=== PATIENT | male | born 1955 | race Caucasian/White ===

== ENCOUNTER 2016-12-17 11:10 | Inpatient (IN) | payer MEDICARE ==
--- NOTE | 2016-12-17 11:19 | ERPHSYRPT ---
- History of Present Illness Time Seen by Provider: 12/17/16 11:18 Historian: patient Exam Limitations: no limitations Physician History: 61 y/o male with history of DM, HTN, CAD and a fib brought in by ambulance with complaints of right sided abdominal pain and right sided testicular pain for the past 2 weeks. Pt arrives soiled in feces after having a large bowel movement in front of EMS. Pt is a poor historian. Pt describes the pain as sharp , constant, 8/10 and pt has not taken any pain meds. Pt also admits to nausea but no vomiting, diarrhea or constipation. Pt also claims he has control of his bowels but he is full of feces. Timing/Duration: week(s) Activities at Onset: none Quality: sharpness Abdominal Pain Onset Location: RLQ, suprapubic Pain Radiation: no radiation Severity of Pain-Max: severe Severity of Pain-Current: severe Modifying Factors: Improves With: defecating Allergies/Adverse Reactions: No Known Drug Allergies Allergy (Unverified 01/03/16 10:00) Home Medications: Canagliflozin [Invokana] 100 mg PO 12/17/16 [History] Carvedilol 25 mg PO 12/17/16 [History] Diltiazem HCl [Diltiazem ER] 240 mg PO 12/17/16 [History] Doxazosin Mesylate 2 mg PO 12/17/16 [History] Esomeprazole Magnesium [Nexium] 40 mg PO 12/17/16 [History] Furosemide 20 mg PO 12/17/16 [History] Hydrochlorothiazide 10.5 mg PO 12/17/16 [History] Insulin Aspart [NovoLOG Insulin] 12/17/16 [History] Methyl-B12/l-Mefolate/B6 Phos [Metanx Tablet] 12/17/16 [History] Olmesartan Medoxomil [Benicar] 5 mg PO 12/17/16 [History] Potassium Chloride 12/17/16 [History] Rosuvastatin Calcium 10 mg PO 12/17/16 [History] Hx Tetanus, Diphtheria Vaccination/Date Given: No Hx Influenza Vaccination/Date Given: Yes Hx Pneumococcal Vaccination/Date Given: No - Review of Systems Constitutional: No Fever, No Chills Eyes: No Symptoms Ears, Nose, & Throat: No Symptoms Respiratory: No Cough, No Dyspnea Cardiac: No Chest Pain, No Edema, No Syncope Abdominal/Gastrointestinal: Abdominal Pain, Nausea, No Vomiting, No Diarrhea Genitourinary Symptoms: No Dysuria Musculoskeletal: No Back Pain, No Neck Pain Skin: No Rash Neurological: No Dizziness, No Focal Weakness, No Sensory Changes Psychological: No Symptoms Endocrine: No Symptoms All Other Systems: Reviewed and Negative - Past Medical History Pertinent Past Medical History: Yes Neurological History: No Pertinent History ENT History: No Pertinent History Cardiac History: High Cholesterol, Hypertension, Myocardial Infarction (LA) Respiratory History: Sleep Apnea Endocrine Medical History: Diabetes Type II Musculoskeletal History: No Pertinent History GI Medical History: No Pertinent History History: No Pertinent History Psycho-Social History: No Pertinent History Male Reproductive Disorders: No Pertinent History Other Medical History: psoriasis - Past Surgical History Past Surgical History: Yes Neuro Surgical History: No Pertinent History Cardiac: No Pertinent History, Cardiac Catheterization Respiratory: No Pertinent History Gastrointestinal: Cholecystectomy, Hemorrhoidectomy Genitourinary: No Pertinent History Musculoskeletal: No Pertinent History, Orthopedic Surgery Male Surgical History: No Pertinent History Other Surgical History: BACK SURGERY. EYE SURGERIES - Social History Smoking Status: Never smoker Exposure to second hand smoke: Yes Drug Use: none Patient Lives Alone: No Significant Family History: heart disease, diabetes - Nursing Vital Signs Nursing Vital Signs: Initial Vital Signs Temperature 99.5 F Temperature Source Oral Pulse Rate 80 Respiratory Rate 18 Blood Pressure [Right Arm] 110/50 Pain Intensity 8 - Physical Exam General Appearance: mild distress, alert Eye Exam: PERRL/EOMI, eyes nml inspection Ears, Nose, Throat Exam: normal ENT inspection, pharynx normal, moist mucous membranes Neck Exam: normal inspection, non-tender, supple, full range of motion Respiratory Exam: normal breath sounds, lungs clear, No respiratory distress Cardiovascular Exam: regular rate/rhythm, normal heart sounds Gastrointestinal/Abdomen Exam: soft, normal bowel sounds, tenderness, No mass Male Genitalia Exam: testicular tenderness Back Exam: normal inspection, normal range of motion, No CVA tenderness, No vertebral tenderness Extremity Exam: normal inspection, normal range of motion, pelvis stable Neurologic Exam: alert, oriented x 3, cooperative, normal mood/affect, nml cerebellar function, sensation nml, No motor deficits Skin Exam: normal color, warm, dry - Course Nursing assessment & vital signs reviewed: Yes Ordered Tests: Active Orders 24 hr Category Date Time Status IV Insertion STAT Care 12/17/16 11:26 Active cath [Cath for Specimen-Straight] STAT Care 12/17/16 11:40 Active Regular Diet Diet 12/17/16 Dinner Active ABDOMEN AND PELVIS W CONTRAST [CT] Stat Exams 12/17/16 11:25 Completed CHEST 1 VIEW (PORTABLE) Stat Exams 12/17/16 15:32 Completed TESTICLE [US] Stat Exams 12/17/16 11:25 Completed AMYLASE Stat Lab 12/17/16 11:40 Completed CBC W DIFF Stat Lab 12/17/16 11:45 Completed CMP Stat Lab 12/17/16 11:40 Completed ETHOH [Ethyl Alcohol,Urine] Stat Lab 12/17/16 12:27 Completed LIPASE Stat Lab 12/17/16 11:40 Completed UA W/RFX UR CULTURE Stat Lab 12/17/16 12:27 Completed Medication Summary Generic Name Dose Route Start Last Admin Trade Name Freq PRN Reason Stop Dose Admin Clindamycin HCl/Dextrose 50 mls @ 100 mls/hr 12/17/16 17:00 Clindamycin-D5w 600 Mg/50 Ml IV 12/17/16 17:29 STAT ONE Discontinued Medications Generic Name Dose Route Start Last Admin Trade Name Freq PRN Reason Stop Dose Admin Clotrimazole 30 gm 12/17/16 17:00 Lotrimin Cream 30 Gm TP 12/17/16 17:01 STAT ONE Sodium Chloride 1,000 mls @ 999 mls/hr 12/17/16 11:27 12/17/16 12:06 Sodium Chloride 0.9% 1000 Ml IV 12/17/16 12:27 999 mls/hr .Q1H1M STA Administration Sodium Chloride Confirm 12/17/16 12:04 Sodium Chloride 0.9% 1000 Ml Administered 12/17/16 12:05 Dose 1,000 mls @ ud .ROUTE .STK-MED ONE Morphine Sulfate 4 mg 12/17/16 11:26 12/17/16 12:06 Morphine Sulfate 4 Mg Inj IV 12/17/16 11:27 4 mg STAT ONE Administration Morphine Sulfate Confirm 12/17/16 12:04 Morphine Sulfate 4 Mg Inj Administered 12/17/16 12:05 Dose 4 mg .ROUTE .STK-MED ONE Ondansetron HCl 4 mg 12/17/16 11:27 12/17/16 12:06 Zofran 4 Mg/2 Ml Vial IV 12/17/16 11:28 4 mg STAT ONE Administration Ondansetron HCl Confirm 12/17/16 12:04 Zofran 4 Mg/2 Ml Vial Administered 12/17/16 12:05 Dose 4 mg .ROUTE .STK-MED ONE Lab/Rad Data: Laboratory Result Diagrams 12/17/16 11:45 12/17/16 11:40 Laboratory Results 12/17/16 12/17/16 12/17/16 Range/Units 12:27 12:27 11:45 WBC 10.0 (4.0-10.5) K/mm3 RBC 4.00 L (4.1-5.6) M/mm3 Hgb 9.6 L (12.5-18.0) gm/dl Hct 31.8 L (42-50) % MCV 79.5 (78-100) fl MCH 24.0 L (26-32) pg MCHC 30.2 L (32-36) g/dl RDW 17.0 H (11.5-14.0) % Plt Count 329 (150-450) K/mm3 MPV 9.2 (6-9.5) fl Gran % 79.1 H (36.0-66.0) % Lymphocytes % 10.5 L (24.0-44.0) % Monocytes % 7.7 (0.0-12.0) % Eosinophils % 2.3 (0.00-5.0) % Basophils % 0.4 (0.0-0.4) % Basophils # 0.04 (0-0.4) Sodium (136-145) mEq/L Potassium (3.5-5.1) mEq/L Chloride (98-107) mEq/L Carbon Dioxide (21-32) mEq/L Anion Gap (5-15) MEQ/L BUN (9-20) mg/dL Creatinine (0.55-1.30) mg/dl Estimated GFR ML/MIN Glucose (70-110) MG/DL Calcium (8.5-10.1) mg/dL Total Bilirubin (0.2-1.0) mg/dL AST (15-37) U/L ALT (12-78) U/L Alkaline Phosphatase (46-116) U/L Serum Total Protein (6.4-8.2) gm/dL Albumin (3.4-5.0) g/dL Amylase (25-115) U/L Lipase (73-393) U/L Ur Collection Type CCMS Urine Color YELLOW (YELLOW) Urine Appearance CLEAR (CLEAR) Urine pH 6.0 6.0 (5-6) Ur Specific Lipan 1.015 (1.005-1.025) Urine Protein NEGATIVE (Negative) Urine Glucose (UA) 500 (NEGATIVE) mg/dL Urine Ketones NEGATIVE (NEGATIVE) Urine Nitrite NEGATIVE (NEGATIVE) Urine Bilirubin NEGATIVE (NEGATIVE) Urine Urobilinogen 1 (0-1) mg/dL Urine WBC (Auto) NEGATIVE (NEGATIVE) Urine RBC (Auto) NEGATIVE (0-5) Mikael/ul Urine Ethyl Alcohol 0 (0.00-20) mg/dl Specimen Received 12-17-16 1233 12/17/16 Range/Units 11:40 WBC (4.0-10.5) K/mm3 RBC (4.1-5.6) M/mm3 Hgb (12.5-18.0) gm/dl Hct (42-50) % MCV (78-100) fl MCH (26-32) pg MCHC (32-36) g/dl RDW (11.5-14.0) % Plt Count (150-450) K/mm3 MPV (6-9.5) fl Gran % (36.0-66.0) % Lymphocytes % (24.0-44.0) % Monocytes % (0.0-12.0) % Eosinophils % (0.00-5.0) % Basophils % (0.0-0.4) % Basophils # (0-0.4) Sodium 144 (136-145) mEq/L Potassium 3.4 L (3.5-5.1) mEq/L Chloride 106 (98-107) mEq/L Carbon Dioxide 28.9 (21-32) mEq/L Anion Gap 12.2 (5-15) MEQ/L BUN 18 (9-20) mg/dL Creatinine 1.21 (0.55-1.30) mg/dl Estimated GFR > 60 ML/MIN Glucose 184 H (70-110) MG/DL Calcium 8.4 L (8.5-10.1) mg/dL Total Bilirubin 0.4 (0.2-1.0) mg/dL AST 22 (15-37) U/L ALT 23 (12-78) U/L Alkaline Phosphatase 103 (46-116) U/L Serum Total Protein 6.5 (6.4-8.2) gm/dL Albumin 2.8 L (3.4-5.0) g/dL Amylase 21 L (25-115) U/L Lipase 94 (73-393) U/L Ur Collection Type Urine Color (YELLOW) Urine Appearance (CLEAR) Urine pH (5-6) Ur Specific Lipan (1.005-1.025) Urine Protein (Negative) Urine Glucose (UA) (NEGATIVE) mg/dL Urine Ketones (NEGATIVE) Urine Nitrite (NEGATIVE) Urine Bilirubin (NEGATIVE) Urine Urobilinogen (0-1) mg/dL Urine WBC (Auto) (NEGATIVE) Urine RBC (Auto) (0-5) Mikael/ul Urine Ethyl Alcohol (0.00-20) mg/dl Specimen Received - Progress Progress: unchanged Progress Note: 12/17/16 17:[address] scan abd/pelvis and US testicles are within normal limits. The labs are unremarkable except for low Hgb of 9.[address] Ren is aware of. Social work was consulted for unstable living conditions and they say the patient will have a bed at [facility] by Tuesday. Pt has a cellulitis and/or tinea cruris of the groin and testicles. Pt will be given a dose of clindamycin and clotrimazole. Pt has been admitted to hospitalist, Dr Roman for cellulitis 12/17/16 17:08 - Departure Time of Disposition: 17:07 Departure Disposition: In-patient Admission Clinical Impression: Living accommodation issues Cellulitis Qualifiers: Site of cellulitis: other site Qualified Code(s): L03.818 - Cellulitis of other sites Condition: Stable Critical Care Time: No
[2016-12-17] MEDS ORDERED: MORPHINE SULFATE 4 MG INJ IV ONE (11:26)
[2016-12-17] MEDS ORDERED: Sodium Chloride 0.9% 1000 ML 1,000 ML IV STA (11:27)
[2016-12-17] MEDS ORDERED: Zofran 4 MG/2 ML VIAL IV ONE (11:27)
[2016-12-17 12:04] LABS: BASOPHIL % 0.4 % (0.0-0.4); Eosinophil % 2.3 % (0.00-5.0); Granulocytes % 79.1 % (36.0-66.0); Lymphocytes % 10.5 % (24.0-44.0); Mean Cell Volume 79.5 fl (78-100); Mean Platelet Volume 9.2 fl (6-9.5); Monocytes % 7.7 % (0.0-12.0); Platelet Count 329 K/mm3 (150-450)
[2016-12-17] MEDS ORDERED: Zofran 4 MG/2 ML VIAL ONE (12:04)
[2016-12-17] MEDS ORDERED: Sodium Chloride 0.9% 1000 ML 1,000 ML ONE (12:04)
[2016-12-17] MEDS ORDERED: MORPHINE SULFATE 4 MG INJ ONE (12:04)
[2016-12-17 12:31] LABS: ALBUMIN 2.8 g/dL (3.4-5.0); ALKALINE PHOSPHATASE 103 U/L (46-116); ANION GAP 12.2 MEQ/L (5-15); BILIRUBIN,TOTAL 0.4 mg/dL (0.2-1.0); BLOOD UREA NITROGEN 18 mg/dL (9-20); CHLORIDE 106 mEq/L (98-107); Carbon Dioxide 28.9 mEq/L (21-32); Glucose 184 MG/DL (70-110); LIPASE 94 U/L (73-393); Potassium 3.4 mEq/L (3.5-5.1); SGOT/AST 22 U/L (15-37); SGPT/ALT 23 U/L (12-78); SODIUM 144 mEq/L (136-145); Total Protein 6.5 gm/dL (6.4-8.2)
[2016-12-17 12:48] LABS: Collection Type CCMS
[2016-12-17 12:49] LABS: ADD URINE CULTURE? NO (NO); COMPLETE URINE MICROSCOPIC? NO
--- NOTE | 2016-12-17 13:24 | XRAY ---
Exam: Testicular ultrasound from 12/17/2016. Comparison: None. Indication: Pain. Findings: The right testicle measures 4.45 cm in length and 2.0 cm x 3.1 cm in cross section. No testicular mass is seen. Normal color blood flow is seen within the right testicle. The head of the epididymis on the right measures 1.1 cm x 0.62 cm. This appears unremarkable. The left testicle measures 3.6 cm in length and 1.9 cm x 3.7 cm in cross section in cross section. No left testicular mass is seen. Normal color blood flow is seen within the left testicle. The head of the epididymis on the left measures 1.3 cm by 1.1 cm and appears unremarkable. Impression: 1. No sonographic or Doppler evidence of testicular torsion is seen. In addition, the head of each epididymis appears unremarkable. 2. No testicular mass is seen.
--- NOTE | 2016-12-17 13:54 | XRAY ---
Exam: CT of the abdomen and pelvis with 80 cc of Isovue-370 contrast from 12/17/2016. CTDI: 34.24 Comparison: CT of the abdomen and pelvis with IV contrast from 07/24/2011. Indication: Right lower quadrant pain and in testicles. Technique: Post-IV contrast axial images were obtained through the abdomen and pelvis. Reconstructed coronal and sagittal images were created and reviewed. Findings: The visualized lung bases appear clear. The heart size is within normal limits. The liver appears normal. Surgical clips consistent with prior cholecystectomy are seen within the hepatic space. No biliary duct distention is seen. The spleen appears essentially unremarkable. Both the pancreas and adrenal glands appear unremarkable. The kidneys are remarkable for a tiny nonobstructing punctate calcification within the posterior aspect of the middle third of the left kidney on axial image #41 of series #2. No other renal calculi or hydronephrosis is seen. On delayed images, both kidneys function. No renal mass is seen. The abdominal aorta appears of normal diameter. No abnormal retroperitoneal or mesenteric lymphadenopathy is seen. There is no evidence of free intraperitoneal air. The bowel is not distended. No bowel wall thickening is seen. I do note moderate scattered stool throughout the colon suggesting some constipation. No bowel obstruction is seen. No findings of acute appendicitis are seen within the right lower quadrant. There is some minimal sigmoid colon diverticulosis without evidence of diverticulitis. The anterior abdominal wall is flaccid, but I see no ventral hernia. No pelvic mass or abnormal enlarged pelvic lymph nodes are seen. There is no free intraperitoneal fluid. The urinary bladder is incompletely distended. The seminal vesicles and prostate gland are unremarkable a couple small prostate gland calcifications. No bowel containing inguinal hernia is seen. Moderate sized benign-appearing lymph nodes are seen within each groin. I see no acute fracture or aggressive bone lesion. Advanced osteoarthritis is seen throughout the visualized lower thoracic spine and lumbar spine. Moderate degenerative disc disease is seen at both L-2L3 and L4 4L5. Impression: 1. No acute process is seen within the abdomen or pelvis. Specifically, I see no evidence of appendicitis, diverticulitis, or ventral or inguinal hernia. Minimal sigmoid colon diverticulosis is seen. 2. Status post cholecystectomy. 3. Tiny nonobstructing stone within the posterior aspect of the middle third of the left kidney. 4. Moderate scattered stool is seen throughout the colon. Consider constipation. 5. Advanced degenerative joint disease/osteoarthritis is seen throughout the visualized thoracolumbar spine.
--- NOTE | 2016-12-17 16:45 | XRAY ---
Exam: AP upright portable chest film from 1608 hrs. on 12/17/2016. Comparison: AP portable chest film from 01/03/2016. Indication: care home placement. Findings: The film was obtained in a lordotic projection. The transverse heart size appears towards the upper limits of normal on this portable technique. No pulmonary vascular congestion is seen. Inspiratory effort is less than average. I cannot exclude some minimal atelectasis or scarring at the lateral left lung base. I don't believe this represents a significant change from 01/03/2016. The remainder of the lung jack appears clear. No pneumothorax or pleural fluid is seen. Some lateral osteophyte formation is seen within the thoracic spine. Impression: 1. The heart size appears towards the upper limits of normal, but is believed to be within normal limits on this portable film which slightly magnifies cardiac size. 2. Questionable minimal atelectasis or scarring at lateral left lung base near left costophrenic angle. I believe this represents no significant change from 01/03/2016. 3. No other acute cardiopulmonary disease is seen.
[2016-12-17] MEDS ORDERED: CLINDAMYCIN-D5W 600 MG/50 ML*** 50 ML IV ONE ×2 (17:00→17:12)
[2016-12-17] MEDS: LOTRIMIN CREAM 30 GM TP ONE ×2 (17:14→20:43)
[2016-12-17] MEDS ORDERED: Morphine PCA 1 MG/ML 30 ML IV ONE (22:13)
[2016-12-17] MEDS ORDERED: Vancomycin 1GM/ Ns 250ML*** 500 ML IV ONE (22:22)
[2016-12-17] MEDS ORDERED: VANCOCIN 1 GM VIAL*** 1 GM in Sodium Chloride 0.9% 250 ML 250 ML IV SCH ×4 (22:30)
[2016-12-17] MEDS ORDERED: Sodium Chloride 0.9% 500 ML 500 ML IV ONE (22:40)
[2016-12-17] MEDS ORDERED: Lantus Insulin SQ SCH (22:40)
[2016-12-17] MEDS ORDERED: Glucotrol 5 MG PO SCH (22:40)
[2016-12-17] MEDS ORDERED: NovoLOG Insulin SQ PRN (22:43)
[2016-12-17] MEDS: Sodium Chloride 0.9% 500 ML 500 ML IV SCH (23:04)
[2016-12-17] MEDS: Morphine PCA 1 MG/ML 30 ML IV PRN (23:04)
[2016-12-18] MEDS: LASIX 20 MG PO SCH ×3 (00:01→16:50)
[2016-12-18] MEDS: COREG 12.5 MG PO SCH ×3 (00:01→23:25)
[2016-12-18] MEDS: CLINDAMYCIN-D5W 600 MG/50 ML*** 50 ML IV SCH ×3 (02:04→16:50)
[2016-12-18] MEDS: Morphine PCA 1 MG/ML 30 ML IV PRN ×2 (05:09→10:53)
[2016-12-18 06:45] LABS: BASOPHIL % 0.6 % (0.0-0.4); Eosinophil % 2.3 % (0.00-5.0); Granulocytes % 69.4 % (36.0-66.0); Lymphocytes % 18.3 % (24.0-44.0); Mean Cell Volume 79.7 fl (78-100); Mean Corpuscular Hemoglobin 24.2 pg (26-32); Mean Platelet Volume 8.7 fl (6-9.5); Monocytes % 9.4 % (0.0-12.0); Platelet Count 299 K/mm3 (150-450); Red Blood Count 3.75 M/mm3 (4.1-5.6); Red Cell Distribution Width 17.1 % (11.5-14.0)
[2016-12-18 07:08] LABS: ANION GAP 12.1 MEQ/L (5-15); BLOOD UREA NITROGEN 15 mg/dL (9-20); CHLORIDE 105 mEq/L (98-107); Glucose 145 MG/DL (70-110); Potassium 3.4 mEq/L (3.5-5.1); SODIUM 141 mEq/L (136-145)
[2016-12-18] MEDS ORDERED: Glucotrol 5 MG PO SCH (08:00)
[2016-12-18] MEDS ORDERED: ULTRAM 50 MG PO PRN (08:14)
[2016-12-18] MEDS ORDERED: MEDICATION INTERVENTION MC SCH (08:30)
[2016-12-18] MEDS ORDERED: solu-MEDROL 125 MG IV SCH (09:00)
[2016-12-18] MEDS ORDERED: GLIPIZIDE 10 MG PO SCH (10:00)
[2016-12-18] MEDS ORDERED: B6 PHOS PO SCH (10:00)
[2016-12-18] MEDS ORDERED: METHYL B12 PO SCH (10:00)
[2016-12-18] MEDS ORDERED: NON-FORMULARY ITEM (Potassium Chloride [Potassium Chloride] 10 MEQ) PO SCH (10:00)
[2016-12-18] MEDS ORDERED: MEFOLATE PO SCH (10:00)
[2016-12-18] MEDS ORDERED: Protonix 40MG Tablet PO SCH (10:00)
[2016-12-18] MEDS ORDERED: HYDROCHLOROTHIAZIDE PO SCH (10:00)
[2016-12-18] MEDS: Benicar 20 MG PO SCH (10:39)
[2016-12-18] MEDS: Lantus Insulin SQ SCH ×2 (10:42→23:28)
[2016-12-18] MEDS: Glucotrol Xl 10 MG PO SCH ×2 (10:43→16:50)
[2016-12-18] MEDS: Cardizem CD 240 MG PO SCH (10:44)
[2016-12-18] MEDS: CARDURA 2 MG PO SCH (10:44)
[2016-12-18] MEDS: ZOCOR 20MG PO SCH (10:45)
[2016-12-18] MEDS: Klor Con 10 MEQ PO SCH (10:45)
[2016-12-18] MEDS: hydroDIURIL 25 MG PO SCH (10:45)
[2016-12-18] MEDS: VANCOCIN 1 GM VIAL*** 1.75 GM in Sodium Chloride 0.9% 500 ML 500 ML IV SCH ×2 (11:42→23:28)
--- NOTE | 2016-12-18 16:33 | HP ---
CHIEF COMPLAINT: Lower abdominal pain, groin pain. HISTORY OF PRESENT ILLNESS: The patient is a 61 year-old white male patient who is apparently home bound, gets around in a wheelchair. He has been seen by Dr. Ren who is his primary care physician and Dr. Umana for his diabetes. The patient had recently been in [facility] for inability to ambulate. The patient reports he got good care there; however, went home to his brother's home. The patient was found there to be unkempt, actually soiled in feces when he was brought to the emergency room for evaluation and management. PAST MEDICAL HISTORY: Significant for his diabetes mellitus. He has peripheral neuropathy. He has hyperlipidemia, gastroesophageal reflux disease. He previously had a myocardial infarction, hypertension, back surgery, eye surgery, cholecystectomy, hemorrhoidectomy. HOME MEDICATIONS: Currently Invokana, carvedilol, diltiazem, doxazosin, Nexium, furosemide, hydrochlorothiazide, Novolog insulin, Metanx tablets, Benicar 5 mg, potassium and rosuvastatin 10 mg. ALLERGIES: No known drug allergies PHYSICAL EXAMINATION: GENERAL: Reveals an obese white male patient who is pleasant in conversation, and his pain seems to be under control, presently on a morphine DIAL POLISHER. VITAL SIGNS: Temperature 99.5 oral, with pulse 80, respiratory rate 18, blood pressure 110/50. HEENT: Normocephalic and atraumatic, pupils are equal, round, reactive to light, extraocular muscles intact. Oropharynx is dry. NECK: Supple without lymphadenopathy, thyromegaly or JVD. CHEST: Clear to auscultation, good air movement bilaterally. HEART: Irregular. No significant murmurs, rubs or gallops are heard. ABDOMEN: Soft, nontender, nondistended without hepatosplenomegaly or masses. : Reveals a Almendarez catheter in place. His scrotum is edematous and enlarged. After moving around this gentleman's parts we were able to see some excoriation in the left side of the groin area extending up into the crease. The patient has pus in that area as well and is malodorous. EXTREMITIES: Reveals mild edema, no cyanosis or clubbing. NEUROLOGIC: The patient is alert and oriented x3. No focal deficits. LABS: Reveal urinalysis to be essentially normal other than 500 glucose. They did an ETOH on him which was essentially negative. His CMP showed glucose nonfasting of 184. BUN 18, creatinine 1.21. Potassium slightly low at 3.4. Liver enzymes are not elevated. Amylase and lipase are normal. He has a hemoglobin of 9.6, platelet count 329,000, a white count of 10,900. He had an x-ray , which heart was found to be in the upper limits of normal in size. There is minimal atelectasis or scarring at the left lung base. No other acute abnormalities are seen. He has a sonogram of the testicles revealing no evidence of testicular torsion, no testicular mass was seen. CT scan of the abdomen and pelvis revealed no acute process in the abdomen or pelvis, specifically no appendicitis or diverticulitis or ventral inguinal hernias. There was noted to be degenerative joint disease seen throughout the thoracolumbar spine. 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 The patient has been admitted for IV Vancomycin and IV Cleocin to cover anaerobes. He will be placed on his usual home medications with sliding scale coverage for his sugars. He will be on a morphine DIAL POLISHER pump for his pain control at the present time.
[2016-12-18] MEDS ORDERED: Levofloxacin 500MG/100ML D5W 100 ML IV SCH (17:00)
[2016-12-19] MEDS: Morphine PCA 1 MG/ML 30 ML IV PRN ×2 (01:30→10:02)
[2016-12-19] MEDS: CLINDAMYCIN-D5W 600 MG/50 ML*** 50 ML IV SCH ×3 (04:53→16:52)
[2016-12-19 06:16] LABS: BASOPHIL % 0.5 % (0.0-0.4); Eosinophil % 2.2 % (0.00-5.0); Granulocytes % 70.8 % (36.0-66.0); Lymphocytes % 16.5 % (24.0-44.0); Mean Cell Volume 79.6 fl (78-100); Mean Platelet Volume 9.3 fl (6-9.5); Platelet Count 323 K/mm3 (150-450); Red Blood Count 3.98 M/mm3 (4.1-5.6); Red Cell Distribution Width 16.9 % (11.5-14.0); White Blood Count 7.4 K/mm3 (4.0-10.5)
[2016-12-19 06:19] LABS: Mean Corpuscular Hemoglobin 23.8 pg (26-32)
[2016-12-19 06:54] LABS: ANION GAP 11.8 MEQ/L (5-15); BLOOD UREA NITROGEN 12 mg/dL (9-20); CHLORIDE 105 mEq/L (98-107); Carbon Dioxide 29.4 mEq/L (21-32); Cholesterol 86 mg/dL (100-200); Glucose 75 MG/DL (70-110); LDL, DIRECT 34 mg/dL (5-99); Potassium 3.6 mEq/L (3.5-5.1); SODIUM 143 mEq/L (136-145); TRIGLYCERIDE 105 mg/dL (30-200)
[2016-12-19] MEDS: COREG 12.5 MG PO SCH ×2 (08:51→22:09)
[2016-12-19] MEDS: Glucotrol Xl 10 MG PO SCH ×2 (08:51→16:52)
[2016-12-19] MEDS: LASIX 20 MG PO SCH ×2 (08:52→16:52)
[2016-12-19] MEDS: Klor Con 10 MEQ PO SCH (08:52)
[2016-12-19] MEDS: Benicar 20 MG PO SCH (08:52)
[2016-12-19] MEDS: hydroDIURIL 25 MG PO SCH (08:53)
[2016-12-19] MEDS: Cardizem CD 240 MG PO SCH (08:53)
[2016-12-19] MEDS: CARDURA 2 MG PO SCH (08:53)
[2016-12-19] MEDS: ZOCOR 20MG PO SCH (08:53)
[2016-12-19] MEDS: OXYCODONE-ACETAMINOPHEN 10-325 PO PRN ×3 (09:43→20:41)
[2016-12-19] MEDS: Lantus Insulin SQ SCH ×2 (09:44→22:10)
[2016-12-19] MEDS: Sodium Chloride 0.9% 500 ML 500 ML IV SCH (09:44)
[2016-12-19] MEDS: PROTONIX 40 MG IV IV SCH (09:45)
[2016-12-19] MEDS ORDERED: Bactroban OINTMENT TP SCH (10:00)
[2016-12-19] MEDS: VANCOCIN 1 GM VIAL*** 1.75 GM in Sodium Chloride 0.9% 500 ML 500 ML IV SCH ×2 (11:02→22:19)
[2016-12-19] MEDS: MORPHINE SULFATE 4 MG INJ IV PRN (13:24)
[2016-12-19] MEDS: Bactroban OINTMENT TP SCH ×2 (14:42→22:09)
[2016-12-19] MEDS ORDERED: TROUGH DRUG LEVELS IJ ONE (21:30)
[2016-12-20] MEDS: OXYCODONE-ACETAMINOPHEN 10-325 PO PRN ×4 (01:09→21:35)
[2016-12-20] MEDS: CLINDAMYCIN-D5W 600 MG/50 ML*** 50 ML IV SCH ×3 (01:23→17:47)
[2016-12-20 05:47] LABS: BASOPHIL % 0.6 % (0.0-0.4); Eosinophil % 5.1 % (0.00-5.0); Granulocytes % 67.5 % (36.0-66.0); Lymphocytes % 15.3 % (24.0-44.0); Mean Cell Volume 78.5 fl (78-100); Mean Platelet Volume 9.1 fl (6-9.5); Monocytes % 11.5 % (0.0-12.0); Platelet Count 339 K/mm3 (150-450); White Blood Count 8.3 K/mm3 (4.0-10.5)
[2016-12-20 05:56] LABS: Mean Corpuscular Hemoglobin 23.6 pg (26-32)
[2016-12-20 06:11] LABS: ANION GAP 11.9 MEQ/L (5-15); BLOOD UREA NITROGEN 12 mg/dL (9-20); CHLORIDE 103 mEq/L (98-107); Carbon Dioxide 27.5 mEq/L (21-32); Glucose 66 MG/DL (70-110); Potassium 3.6 mEq/L (3.5-5.1); SODIUM 139 mEq/L (136-145)
[2016-12-20] MEDS: Glucotrol Xl 10 MG PO SCH ×2 (07:56→17:46)
[2016-12-20] MEDS: Lantus Insulin SQ SCH ×2 (07:56→21:37)
[2016-12-20] MEDS: MORPHINE SULFATE 4 MG INJ IV PRN ×3 (08:22→22:49)
[2016-12-20] MEDS: hydroDIURIL 25 MG PO SCH (10:19)
[2016-12-20] MEDS: VANCOCIN 1 GM VIAL*** 1.5 GM in Sodium Chloride 0.9% 500 ML 500 ML IV SCH ×2 (10:19→21:36)
[2016-12-20] MEDS: LASIX 20 MG PO SCH ×2 (10:19→17:46)
[2016-12-20] MEDS: CARDURA 2 MG PO SCH (10:19)
[2016-12-20] MEDS: Klor Con 10 MEQ PO SCH (10:20)
[2016-12-20] MEDS: Bactroban OINTMENT TP SCH ×3 (10:20→21:34)
[2016-12-20] MEDS: Cardizem CD 240 MG PO SCH (10:20)
[2016-12-20] MEDS: ZOCOR 20MG PO SCH (10:20)
[2016-12-20] MEDS: PROTONIX 40 MG IV IV SCH (10:20)
[2016-12-20] MEDS: COREG 12.5 MG PO SCH ×2 (10:20→21:35)
[2016-12-20] MEDS: Benicar 20 MG PO SCH (10:20)
[2016-12-20] MEDS: Sodium Chloride 0.9% 500 ML 500 ML IV SCH (14:37)
[2016-12-20] MEDS ORDERED: Zofran 4 MG/2 ML VIAL IV PRN (21:27)
[2016-12-21] MEDS: CLINDAMYCIN-D5W 600 MG/50 ML*** 50 ML IV SCH ×2 (01:25→11:43)
[2016-12-21] MEDS: Sodium Chloride 0.9% 500 ML 500 ML IV SCH (01:27)
[2016-12-21] MEDS: OXYCODONE-ACETAMINOPHEN 10-325 PO PRN ×3 (01:32→11:42)
[2016-12-21] MEDS: MORPHINE SULFATE 4 MG INJ IV PRN ×3 (03:02→11:53)
[2016-12-21 09:43] LABS: INR 1.28 (0.8-3.0); PROTIME 14.2 SECONDS (8.83-12.87)
[2016-12-21] MEDS: ZOCOR 20MG PO SCH (11:41)
[2016-12-21] MEDS: Benicar 20 MG PO SCH (11:41)
[2016-12-21] MEDS: CARDURA 2 MG PO SCH (11:41)
[2016-12-21] MEDS: Cardizem CD 240 MG PO SCH (11:42)
[2016-12-21] MEDS: hydroDIURIL 25 MG PO SCH (11:42)
[2016-12-21] MEDS: LASIX 20 MG PO SCH (11:42)
[2016-12-21] MEDS: COREG 12.5 MG PO SCH (11:42)
[2016-12-21] MEDS: Klor Con 10 MEQ PO SCH (11:42)
[2016-12-21] MEDS: PROTONIX 40 MG IV IV SCH (11:43)
[2016-12-21] MEDS: Bactroban OINTMENT TP SCH (11:53)
[2016-12-21] MEDS: Lantus Insulin SQ SCH (11:54)
[2016-12-21] MEDS: Glucotrol Xl 10 MG PO SCH (11:54)
[2016-12-21 12:01] VITALS: BP 167/68; PULSE 84; O2SAT 95
--- NOTE | 2016-12-21 12:22 | XRAY ---
Indication: Long-term IV access and therapy for infection. Informed consent obtained. Patient was placed on the fluoroscopic table in a supine position. Initial sonographic imaging of the right upper extremity was performed for localization of patent veins. The right upper extremity was then prepped and draped in sterile fashion. Tourniquet applied. 1% lidocaine plain used for local anesthesia. Using ultrasound guidance and a micropuncture needle, a basilic vein above the elbow was successfully percutaneously cannulized. A floppy tip 0.018 guidewire inserted. Tourniquet released. Needle was exchanged for a 5 Martiniquais dilator peel-away sheath catheter. Ultimately a 5 Martiniquais double-lumen PICC line was inserted over a longer 0.018 guidewire with the tip positioned in the distal SVC using fluoroscopic guidance. Guidewire removed. Both ports flushed with heparinized saline. Catheter was secured. Postoperative instructions and orders given. Patient discharged in good condition. Impression: Technically successful right upper extremity PICC line placement using ultrasound and fluoroscopic guidance. No immediate complications. Approximately 1 cc blood loss. Approximately 0.3 minute of fluoroscopy used.
--- NOTE | 2016-12-21 12:22 | XRAY ---
Indication: Ultrasound guidance for PICC line placement. Initial sonographic imaging of the right upper extremity was performed for localization of patent veins. A patent basilic vein identified above the elbow. Ultrasound guidance was then used for PICC line insertion. Full PICC line insertion is reported separately.
--- NOTE | 2016-12-21 12:28 | DS ---
DISCHARGE DIAGNOSES: 1) VLADIMIR'S GANGRENE. 2) CELLULITIS. 3) DIABETES MELLITUS TYPE 2. 4) DIABETIC NEUROPATHY. HISTORY: The patient is a 61 year-old white male patient who apparently had become weak. He had trouble over the last few months with increasing weakness to the point that he is not ambulatory. He has diabetic neuropathy is the main cause of his problem. The patient had been in [facility] for a while but was discharged to live with his brother and since that time the patient has been unkempt. He was found by the EMS to be soiled in feces. When he arrived to the emergency room he was running a fever and had severe pain in his groin area. On evaluation the patient was found to have cellulitis in the groin area concerning for developing Vladimir's gangrene. The patient was admitted for IV antibiotic treatment. HOSPITAL COURSE: The patient was admitted to the hospital on IV Cleocin and IV Vancomycin and topical Bactroban ointment and physical therapy evaluations. Bactroban ointment was placed his groin area along with antifungal treatments. The patient's pain improved. His fever resolved. His laboratory studies on admission showed a white blood cell count 10,000, hemoglobin 9.6, PLT count 329,000. The patient's metabolic panel showed a glucose of 184, BUN 18, creatinine 1.21, potassium was 3.4. The patient had ultrasound of the testicles revealing no torsion. He had chest x-ray showing borderline enlarged heart, minimal atelectasis in lung bases otherwise it was normal. The patient was felt to be ready for discharge to rehab by 12/21/2016 to continue a course of IV antibiotics for a week, to continue his physical therapy and for help with ambulation to get him back on his feet again. The patient will be followed in the shelter by the facility physician.
[2016-12-21] MEDS: VANCOCIN 1 GM VIAL*** 1.5 GM in Sodium Chloride 0.9% 500 ML 500 ML IV SCH (13:56)
[2016-12-24] MEDS ORDERED: VITAMIN D2 PO SCH (10:00)
== END 2016-12-21 14:20 | DRG 728 ==
LOC: ED 11:10 → ICU 17:41 → MED SURG 12-18 15:22
PROVIDERS: ADMIT Family Medicine; ATTEND Family Medicine
DX: N49.3 Fournier gangrene (principal); L03.314 Cellulitis of groin; E11.42 Type 2 diabetes mellitus with diabetic polyneuropathy; E78.5 Hyperlipidemia, unspecified; K21.9 Gastro-esophageal reflux disease without esophagitis; M47.9 Spondylosis, unspecified; I25.2 Old myocardial infarction; Z79.899 Other long term (current) drug therapy
CPT/HCPCS: 36415; 36569; 51702; 71010; 74177; 76870; 76937; 77001; 80048; 80053; 80061; 80202; 80320; 81000; 82150; 82962; 83036; 83690; 83721; 83986; 85025; 85610; 85730; 96360; 96374; 96375; 99284; 99285; C1769; J1642; J2270; J2405; J3370; P9612

== ENCOUNTER 2017-08-10 20:11 | Emergency (ER) | payer MEDICARE ==
[2017-08-10] MEDS ORDERED: NovoLIN R IV ONE (20:51)
[2017-08-10] MEDS ORDERED: CLINDAMYCIN-D5W 900 MG/50 ML*** 900 MG/50 ML BAG IV STA (20:53)
[2017-08-10] MEDS ORDERED: Sodium Chloride 0.9% 1000 ML 1,000 ML IV SCH (21:00)
[2017-08-10] MEDS ORDERED: Sodium Chloride 0.9% 1000 ML 1,000 ML ONE (21:01)
[2017-08-10] MEDS ORDERED: CLINDAMYCIN-D5W 900 MG/50 ML*** 900 MG/50 ML BAG IV ONE (21:01)
[2017-08-10] MEDS ORDERED: NovoLIN R ONE (21:01)
--- NOTE | 2017-08-10 21:01 | ERPHSYRPT ---
- History of Present Illness Time Seen by Provider: 08/10/17 20:39 Source: patient Exam Limitations: no limitations Patient Subjective Stated Complaint: pt had bs check at facility at 4 pm, bs reading was high was given 13 novolog. they came back and the check read high. pt denies s/s at this time Triage Nursing Assessment: aox3, breathing easy unlabored, skin pink warm dry, assist of one needed to move from wc to bed Physician History: PT HAD A HIGH ACCUCHECK AT THE [facility] AND WAS SENT HERE FOR EVALUATION. PT C/O INCREASED URINARY FREQUENCY FOR THE PAST 2 WEEKS; DENIES FEVER, CHEST PAIN, SHORTNESS OF AIR, CHILLS, NAUSEA, VOMITING. PT STATES HIS RIGHT LEG HAS HAD BLISTERS FOR THE PAST 1.5 WEEKS. Allergies/Adverse Reactions: No Known Drug Allergies Allergy (Unverified 08/10/17 20:26) Home Medications: Albiglutide [Tanzeum] 50 mg SQ UD 12/17/16 [History] Bromocriptine Mesylate [Cycloset] 6 tab PO QAM 12/17/16 [History] Canagliflozin [Invokana] 100 mg PO QAM 12/17/16 [History] Cyanocobalamin (Vitamin B-12) [Vitamin B12] 2,500 mcg PO DAILY 12/17/16 [History ] Ergocalciferol (Vitamin D2) [Vitamin D2] 50,000 unit PO Q7D 12/17/16 [History] Esomeprazole Magnesium [Nexium] 40 mg PO DAILY 12/17/16 [History] Furosemide 20 mg PO BID 12/17/16 [History] Glipizide [Glipizide Xl] 10 mg PO BID 12/17/16 [History] Insulin Aspart [NovoLOG Insulin] 20 - 30 units SQ UD PRN 12/17/16 [History] Insulin Glargine [Lantus Insulin] 45 unit SQ BID 12/17/16 [History] Methyl-B12/l-Mefolate/B6 Phos [Metanx Tablet] 1 each PO BID 12/17/16 [History] Potassium Chloride 10 meq PO DAILY 12/17/16 [History] Calcium Carb, Citrate/Vit D3 [Calcium + D3 ER Tablet] 1 each PO DAILY 08/10/17 [ History] Carvedilol 3.125 mg [Coreg 3.125 MG] 3.125 mg PO BID 08/10/17 [History] Dextrose [Glucose] 4 gm PO BID PRN PRN 08/10/17 [History] Duloxetine HCl 30 mg [Cymbalta 30 MG Capsule] 30 mg PO DAILY 08/10/17 [ History] Hydrocodone Bit/Acetaminophen [[place] 5-325 Tablet] 1 each PO Q6H PRN 08/10/17 [ History] Multivit with Iron,Minerals [Multilex] 1 each PO DAILY 08/10/17 [History] Rosuvastatin Calcium [Crestor] 10 mg PO DAILY 08/10/17 [History] Hx Tetanus, Diphtheria Vaccination/Date Given: No Hx Influenza Vaccination/Date Given: No Hx Pneumococcal Vaccination/Date Given: No - Review of Systems Constitutional: No Fever Respiratory: No Dyspnea Cardiac: No Chest Pain Abdominal/Gastrointestinal: No Abdominal Pain, No Nausea, No Vomiting Genitourinary Symptoms: Frequency Skin: Other (BLISTERS ON RIGHT LEG) Neurological: No Headache All Other Systems: Reviewed and Negative - Past Medical History Pertinent Past Medical History: Yes Neurological History: No Pertinent History ENT History: No Pertinent History Cardiac History: High Cholesterol, Hypertension, Myocardial Infarction ([place]) Respiratory History: Sleep Apnea Endocrine Medical History: Diabetes Type II Musculoskeletal History: No Pertinent History GI Medical History: No Pertinent History History: No Pertinent History Psycho-Social History: No Pertinent History Male Reproductive Disorders: No Pertinent History Other Medical History: psoriasis - Past Surgical History Past Surgical History: Yes Neuro Surgical History: No Pertinent History Cardiac: No Pertinent History, Cardiac Catheterization Respiratory: No Pertinent History Gastrointestinal: Cholecystectomy, Hemorrhoidectomy Genitourinary: No Pertinent History Musculoskeletal: No Pertinent History, Orthopedic Surgery Male Surgical History: No Pertinent History Other Surgical History: BACK SURGERY. EYE SURGERIES - Social History Smoking Status: Never smoker Exposure to second hand smoke: Yes Drug Use: none Patient Lives Alone: No Significant Family History: heart disease, diabetes - Nursing Vital Signs Nursing Vital Signs: Initial Vital Signs Temperature 98.0 F 08/10/17 20:23 Pulse Rate 99 H 08/10/17 20:23 Respiratory Rate 16 08/10/17 20:23 Blood Pressure 160/87 08/10/17 20:23 Pain Scale Pain Intensity 1 - Physical Exam General Appearance: alert Eye Exam: PERRL/EOMI Ears, Nose, Throat Exam: TMs normal, dry mucous membranes Neck Exam: normal inspection Respiratory Exam: lungs clear Cardiovascular Exam: normal heart sounds Gastrointestinal/Abdomen Exam: soft, normal bowel sounds Back Exam: normal range of motion Extremity Exam: pedal edema (+2 PEDAL EDEMA), swelling (RIGHT LEG IS MILDLY EDEMATOUS AND ERYTHEMATOUS WITH TWO ~ 1 CM DIAMETER SUPERFICIAL ULCERS OVER THE MID ANTERIOR ASPECT.) Neurologic Exam: alert, cooperative - Radiology Ultrasound Exam Venous Lower Extremity Ultrasound: Other (TECH REPORT: NO DVT IN RIGHT LOWER EXTREMITY.) Ordered Tests: Active Orders 24 hr Category Date Time Status Accucheck STAT Care 08/10/17 20:51 Active IV Insertion STAT Care 08/10/17 20:50 Active VENOUS UNILAT/LIMITED EXTREMIT [US] Stat Exams 08/10/17 20:51 Taken BLOOD CULTURE Stat Lab 08/10/17 21:09 Received CBC W DIFF Stat Lab 08/10/17 21:00 Completed CMP Stat Lab 08/10/17 21:00 Completed CULTURE,URINE Stat Lab 08/10/17 20:45 Received UA W/ MICROSCOPIC Stat Lab 08/10/17 20:45 Completed Medication Summary Generic Name Dose Route Start Last Admin Trade Name Freq PRN Reason Stop Dose Admin Sodium Chloride 1,000 mls @ 100 mls/hr 08/10/17 21:00 08/10/17 21:07 Sodium Chloride 0.9% 1000 Ml IV 09/09/17 20:59 100 mls/hr .Q10H NOEL Administration Discontinued Medications Generic Name Dose Route Start Last Admin Trade Name Freq PRN Reason Stop Dose Admin Clindamycin HCl/Dextrose 900 mg in 50 mls @ 100 mls/hr 08/10/17 20:53 21:07 Clindamycin-D5w 900 Mg/50 Ml IV 08/10/17 21:22 100 mls/hr STAT STA Administration Clindamycin HCl/Dextrose Confirm 08/10/17 21:01 Clindamycin-D5w 900 Mg/50 Ml Administered 08/10/17 21:02 Dose 900 mg in 50 mls @ ud IV .STK-MED ONE Insulin Human Regular 10 unit 08/10/17 20:51 08/10/17 21:08 Novolin R IV 08/10/17 20:52 Not Given STAT ONE Insulin Human Regular Confirm 08/10/17 21:01 Novolin R Administered 08/10/17 21:02 Dose 10 unit .ROUTE .STK-MED ONE Lab/Rad Data: Laboratory Result Diagrams 08/10/17 21:00 08/10/17 21:00 Laboratory Results 08/10/17 08/10/17 08/10/17 Range/Units 21:00 21:00 20:45 WBC 5.6 (4.0-10.5) K/mm3 RBC 5.99 H (4.1-5.6) M/mm3 Hgb 15.4 (12.5-18.0) gm/dl Hct 47.4 (42-50) % MCV 79.1 (78-100) fl MCH 25.7 L (26-32) pg MCHC 32.5 (32-36) g/dl RDW 19.7 H (11.5-14.0) % Plt Count 243 (150-450) K/mm3 MPV 9.5 (6-9.5) fl Gran % 61.7 (36.0-66.0) % Lymphocytes % 24.5 (24.0-44.0) % Monocytes % 11.5 (0.0-12.0) % Eosinophils % 2.1 (0.00-5.0) % Basophils % 0.2 (0.0-0.4) % Basophils # 0.01 (0-0.4) Sodium 135 L (136-145) mEq/L Potassium 4.2 (3.5-5.1) mEq/L Chloride 98 (98-107) mEq/L Carbon Dioxide 28.5 (21-32) mEq/L Anion Gap 13.1 (5-15) MEQ/L BUN 14 (9-20) mg/dL Creatinine 0.93 (0.55-1.30) mg/dl Estimated GFR > 60 ML/MIN Glucose 240 H (70-110) MG/DL Calcium 9.8 (8.5-10.1) mg/dL Total Bilirubin 0.40 (0.2-1.0) mg/dL AST 21 (15-37) U/L ALT 32 (12-78) U/L Alkaline Phosphatase 102 (46-116) U/L Serum Total Protein 8.6 H (6.4-8.2) gm/dL Albumin 3.8 (3.4-5.0) g/dL Ur Collection Type CLEAN CATCH Urine Color YELLOW (YELLOW) Urine Appearance CLOUDY (CLEAR) Urine pH 6.5 (5-6) Ur Specific [place] 1.010 (1.005-1.025) Urine Protein TRACE (Negative) Urine Ketones NEGATIVE (NEGATIVE) Urine Blood 50 (0-5) Mikael/ul Urine Nitrite NEGATIVE (NEGATIVE) Urine Bilirubin NEGATIVE (NEGATIVE) Urine Urobilinogen NORMAL (0-1) mg/dL Ur Leukocyte Esterase 2+ (NEGATIVE) Urine Microscopic RBC 2-5 (0-2) /HPF Urine Microscopic WBC 50-100 (0-5) /HPF Ur Epithelial Cells RARE (FEW) /HPF Urine Bacteria RARE (NEGATIVE) /HPF Urine Culture Reflexed YES (NO) Urine Glucose 1000 (NEGATIVE) mg/dL Specimen Received 08/10/182049 - Progress Discussed with Dr.: Gann (FEBRUARY RETURN TO [facility] - ~ [id number]) - Departure Time of Disposition: 22:48 Departure Disposition: Observation Clinical Impression: RIGHT LEG CELLULITIS, DM, ULCERS ON RIGHT LEG, HTN Condition: Stable Critical Care Time: No Referrals: KOREY DAVID MD [Primary Care Provider] - Instructions: Cellulitis -- Adult, Hyperglycemia -- Adult Additional Instructions: TO CALL DR GANN TOMORROW FOR AN UPDATE ON CONDITION. ELEVATE RIGHT LEG ABOVE HEART LEVEL AT ALL TIMES. Prescriptions: Clindamycin HCl 300 mg PO Q6H #40 capsule
[2017-08-10 21:13] LABS: BASOPHIL % 0.2 % (0.0-0.4); Eosinophil % 2.1 % (0.00-5.0); Granulocytes % 61.7 % (36.0-66.0); Lymphocytes % 24.5 % (24.0-44.0); Mean Cell Volume 79.1 fl (78-100); Mean Corpuscular Hemoglobin 25.7 pg (26-32); Mean Platelet Volume 9.5 fl (6-9.5); Monocytes % 11.5 % (0.0-12.0); Platelet Count 243 K/mm3 (150-450); Red Blood Count 5.99 M/mm3 (4.1-5.6); Red Cell Distribution Width 19.7 % (11.5-14.0); White Blood Count 5.6 K/mm3 (4.0-10.5)
[2017-08-10 21:27] LABS: Collection Type CLEAN CATCH; Glucose 1000 mg/dL (NEGATIVE); Leukocyte Esterase 2+ (NEGATIVE)
[2017-08-10 21:28] LABS: ADD URINE CULTURE? YES (NO); Bacteria RARE /HPF (NEGATIVE); Bilirubin NEGATIVE (NEGATIVE); Blood 50 Ery/ul (0-5); COMPLETE URINE MICROSCOPIC? YES; Epithelial Cells RARE /HPF (FEW); WBC 50-100 /HPF (0-5)
[2017-08-10 21:37] LABS: ALBUMIN 3.8 g/dL (3.4-5.0); ALKALINE PHOSPHATASE 102 U/L (46-116); ANION GAP 13.1 MEQ/L (5-15); BLOOD UREA NITROGEN 14 mg/dL (9-20); CHLORIDE 98 mEq/L (98-107); Carbon Dioxide 28.5 mEq/L (21-32); Glucose 240 MG/DL (70-110); Potassium 4.2 mEq/L (3.5-5.1); SGOT/AST 21 U/L (15-37); SGPT/ALT 32 U/L (12-78); SODIUM 135 mEq/L (136-145); Total Protein 8.6 gm/dL (6.4-8.2)
[2017-08-10 23:19] VITALS: BP 175/87; PULSE 94; O2SAT 97
--- NOTE | 2017-08-11 08:56 | XRAY ---
Indication: Right leg swelling and erythema. Two-dimensional sonogram and color Doppler imaging of the major venous vessels of the right leg was performed. Comparison: None No thrombus seen in the examined deep venous vessels of the right leg including greater saphenous vein. Veins demonstrate normal compressibility. Venous waveforms are normal with and without augmentation. At the level of the anterior calf, there is mild subcutaneous edema without focal solid/cystic mass. Also a few enlarged right inguinal lymph nodes, largest measuring 2.7 x 2.9 x 2.6 cm. Impression: 1. Right leg negative for DVT. 2. Right lower leg subcutaneous edema and enlarged right inguinal nodes. Rule out underlying inflammatory/infectious process. Comment: Preliminary report was given.
== END 2017-08-10 23:19 ==
LOC: ED 20:11
DX: L03.115 Cellulitis of right lower limb (principal); E11.9 Type 2 diabetes mellitus without complications; I10 Essential (primary) hypertension; L97.819 Non-pressure chronic ulcer of other part of right lower leg with unspecified severity; Z79.899 Other long term (current) drug therapy; Z79.84 Long term (current) use of oral hypoglycemic drugs; Z79.4 Long term (current) use of insulin; Z79.891 Long term (current) use of opiate analgesic; E78.00 Pure hypercholesterolemia, unspecified; I25.2 Old myocardial infarction
CPT/HCPCS: 36000; 36415; 80053; 81000; 82962; 85025; 87040; 87077; 87086; 87186; 93971; 96360; 96365; 96374; 99284; A9270-GY

== ENCOUNTER 2021-11-03 11:30 | Emergency (ER) | payer MEDICARE ==
[2021-11-03] MEDS ORDERED: Sodium Chloride 0.9% 1000 ML 1,000 ML IV SCH (12:00)
[2021-11-03] MEDS ORDERED: Sodium Chloride 0.9% 1000 ML 1,000 ML ONE (12:29)
[2021-11-03 12:53] LABS: Absolute Neutrophil Ct (ANC) 5.47 (1.4-6.9); Basophil (Absolute #) 0.02 (0-0.4); Eosinophil (Absolute #) 0.15 (0-0.5); Hematocrit 46.2 % (42-50); Hemoglobin 15.4 gm/dl (12.5-18.0); Lymphocyte (Absolute #) 1.05 (1.0-4.6); Lymphocytes % 14.3 % (24.0-44.0); Mean Cell Volume 92.2 fl (78-100); Mean Corpuscular Hemoglobin 30.7 pg (26-32); Mean Corpuscular Hgb Concent. 33.3 g/dl (32-36); Mean Platelet Volume 9.4 fl (7.5-11.0); Monocyte (Absolute #) 0.63 (0.0-1.3); Monocytes % 8.6 % (0.0-12.0); Neutrophil % 74.8 % (36.0-66.0); Platelet Count 195 K/mm3 (150-450); Red Blood Count 5.01 M/mm3 (4.1-5.6); Red Cell Distribution Width 14.9 % (11.5-14.0); White Blood Count 7.3 K/mm3 (4.0-10.5)
[2021-11-03 12:55] LABS: INR 1.18 (0.8-3.0); PROTIME 13.9 SECONDS (9.4-12.5)
[2021-11-03 12:57] LABS: PTT 38.3 SECONDS (25.1-36.5)
[2021-11-03 13:00] LABS: ALBUMIN 3.9 g/dL (3.5-5.0); ALKALINE PHOSPHATASE 110 U/L (38-126); BLOOD UREA NITROGEN 14 mg/dL (9-20); CHLORIDE 100 mmol/L (98-107); Calcium 9.3 mg/dL (8.4-10.2); Carbon Dioxide 30 mmol/L (22-30); Creatinine 1 1.11 mg/dL (0.66-1.25); EST GLOMERULAR FILTRATION RATE > 60.0 ML/MIN; Glucose 207 mg/dL (74-106); Potassium 3.8 mmol/L (3.5-5.1); SGOT/AST 32 U/L (17-59); SGPT/ALT 23 U/L (0-50); SODIUM 136 mmol/L (137-145); Total Protein 7.4 g/dL (6.3-8.2)
--- NOTE | 2021-11-03 13:12 | ERPHSYRPT ---
- History of Present Illness Time Seen by Provider: 11/03/21 11:45 Historian: patient, [facility] Exam Limitations: no limitations Patient Subjective Stated Complaint: pt here clots in stool today, pt denies any abd pain or nausea. pt on blood thinner for dvt in both legs. pt has uniboots on both legs, Triage Nursing Assessment: pt alert, only co is normal arthrictic pain, skin w/d/p, pt unable to walk due to diabetis, abd soft Physician History: Patient is a 65-year-old male who is a [facility] who presents with a report of blood clots and has bowel movement this morning. 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 He is nonambulatory. Timing/Duration: today Activities at Onset: none Severity of Pain-Max: none Severity of Pain-Current: none Modifying Factors: Improves With: defecating Previous symptoms: no prior history Allergies/Adverse Reactions: No Known Drug Allergies Allergy (Verified 11/03/21 11:38) Home Medications: Cyanocobalamin (Vitamin B-12) [Vitamin B12] 2,500 mcg PO DAILY 12/17/16 [History] Ergocalciferol (Vitamin D2) [Vitamin D2] 50,000 unit PO Q7D 12/17/16 [History] Furosemide 20 mg PO BID 12/17/16 [History] Insulin Aspart [NovoLOG Insulin] 20 - 30 units SQ UD PRN 12/17/16 [History] Methyl-B12/l-Mefolate/B6 Phos [Metanx Tablet] 1 each PO BID 12/17/16 [History] Potassium Chloride 10 meq PO DAILY 12/17/16 [History] glipiZIDE [Glipizide Xl] 10 mg PO BID 12/17/16 [History] Calcium Carb, Citrate/Vit D3 [Calcium + D3 ER Tablet] 1 each PO DAILY 08/10/17 [History] Carvedilol 3.125 mg [Coreg 3.125 MG] 3.125 mg PO BID 08/10/17 [History] Dextrose [Glucose] 4 gm PO BID PRN PRN 08/10/17 [History] Duloxetine HCl 30 mg [Cymbalta 30 MG Capsule] 30 mg PO DAILY 08/10/17 [History] Hydrocodone/Acetaminophen [[place] 5-325 Tablet] 1 each PO Q6H PRN 08/10/17 [History] Multivit-Min/Ferrous Sulfate [Multilex] 1 each PO DAILY 08/10/17 [History] Rosuvastatin Calcium [Crestor] 10 mg PO DAILY 08/10/17 [History] Apixaban [Eliquis 5 mg Tablet] 1 ea DAILY 11/03/21 [History] Dorzolamide HCl/Timolol Maleat [Dorzolamide-Timolol Eye Drops] 1 drop BID 11/03/21 [History] Dulaglutide [Trulicity] 1.5 mg SQ UD 11/03/21 [History] Empagliflozin [Jardiance] 25 mg DAILY 11/03/21 [History] Insulin Detemir [Levemir] 80 unit SQ BID 11/03/21 [History] Lisinopril 10 mg [Zestril 10 MG] 1 ea DAILY 11/03/21 [History] Mecobal/Levomefolat Ca/B6 Phos [c-Oghshn-H9-B12 Tablet] 1 ea DAILY 11/03/21 [History] Hx Tetanus, Diphtheria Vaccination/Date Given: No Hx Influenza Vaccination/Date Given: No Hx Pneumococcal Vaccination/Date Given: No Immunizations Up to Date: Yes Travel Risk - International Travel Have you traveled outside of the country in past 3 weeks: No - Coronavirus Screening Are you exhibiting any of the following symptoms?: No - Vaccine Status Have you recieved a Covid-19 vaccination: Yes Retail Attendant: Unknown - Vaccination Dates Date of 2cond Vaccination (if applicable): ? Dates if Unknown: ? - Review of Systems Constitutional: No Fever, No Chills Eyes: No Symptoms Ears, Nose, & Throat: No Symptoms Respiratory: No Cough, No Dyspnea Cardiac: No Chest Pain, No Edema, No Syncope Abdominal/Gastrointestinal: Melena, No Abdominal Pain, No Nausea, No Vomiting, No Diarrhea Genitourinary Symptoms: No Dysuria Musculoskeletal: No Back Pain, No Neck Pain Skin: No Rash Neurological: No Dizziness, No Focal Weakness, No Sensory Changes Psychological: No Symptoms Endocrine: No Symptoms All Other Systems: Reviewed and Negative - Past Medical History Pertinent Past Medical History: Yes Neurological History: No Pertinent History ENT History: No Pertinent History Cardiac History: Deep Vein Thrombosis, High Cholesterol, Hypertension, Myocardial Infarction ([place]) Respiratory History: Sleep Apnea Endocrine Medical History: Diabetes Type II Musculoskeletal History: No Pertinent History GI Medical History: No Pertinent History History: No Pertinent History Psycho-Social History: No Pertinent History Male Reproductive Disorders: No Pertinent History Other Medical History: psoriasis - Past Surgical History Past Surgical History: Yes Neuro Surgical History: No Pertinent History Cardiac: No Pertinent History, Cardiac Catheterization Respiratory: No Pertinent History Gastrointestinal: Cholecystectomy, Hemorrhoidectomy Genitourinary: No Pertinent History Musculoskeletal: No Pertinent History, Orthopedic Surgery Male Surgical History: No Pertinent History Other Surgical History: BACK SURGERY. EYE SURGERIES - Social History Smoking Status: Never smoker Exposure to second hand smoke: Yes Drug Use: none Patient Lives Alone: No Significant Family History: heart disease, diabetes - Nursing Vital Signs Nursing Vital Signs: Initial Vital Signs Temperature 97.6 F 11/03/21 11:32 Pulse Rate 94 H 11/03/21 11:32 Respiratory Rate 18 11/03/21 11:32 Blood Pressure 192/84 11/03/21 11:32 O2 Sat by Pulse Oximetry 98 11/03/21 11:32 Pain Scale Pain Intensity 8 - Physical Exam General Appearance: mild distress, alert Eye Exam: PERRL/EOMI, eyes nml inspection Ears, Nose, Throat Exam: normal ENT inspection, pharynx normal, moist mucous membranes Neck Exam: normal inspection, non-tender, supple, full range of motion Respiratory Exam: normal breath sounds, lungs clear, No respiratory distress Cardiovascular Exam: regular rate/rhythm, normal heart sounds Gastrointestinal/Abdomen Exam: soft, No tenderness, No mass Back Exam: normal inspection, normal range of motion, No CVA tenderness, No vertebral tenderness Extremity Exam: normal inspection, normal range of motion, pelvis stable, other (Both lower legs are in the [place] boots) Neurologic Exam: alert, oriented x 3, cooperative, normal mood/affect, nml cerebellar function, sensation nml, No motor deficits Skin Exam: normal color, warm, dry SpO2 Interpretation: normal SpO2: 98 O2 Delivery: Room Air - Course Nursing assessment & vital signs reviewed: Yes - CT Exams Abdomen/Pelvis CT Interpretation: Negative (CT is negative other than a left renal punctate calculus and chronic bony findings) Ordered Tests: Active Orders 24 hr Category Date Time Status Cath [Catheter-[place] Almendarez] STAT Care 11/03/21 12:14 Active IV Insertion STAT Care 11/03/21 11:51 Active ABDOMEN AND PELVIS W CONTRAST [CT] Stat Exams 11/03/21 11:53 Completed CBC W DIFF Stat Lab 11/03/21 12:32 Completed CMP Stat Lab 11/03/21 12:32 Completed Lactic Acid Stat Lab 11/03/21 12:42 Completed PROTIME WITH INR Stat Lab 11/03/21 12:32 Completed PTT Stat Lab 11/03/21 12:32 Completed UA W/RFX UR CULTURE Stat Lab 11/03/21 12:15 Ordered Medication Summary Generic Name Dose Route Start Last Admin Trade Name Freq PRN Reason Stop Dose Admin Sodium Chloride 1,000 mls @ 100 mls/hr 11/03/21 12:00 11/03/21 12:30 Sodium Chloride 0.9% 1000 Ml IV 12/03/21 11:59 100 mls/hr .Q10H NOEL Administration Discontinued Medications Generic Name Dose Route Start Last Admin Trade Name Freq PRN Reason Stop Dose Admin Hydrocodone Bitart/Acetaminophen 1 tab 11/03/21 13:23 11/03/21 13:26 Hydrocodone/Apap 5/325 Mg Tablet PO 11/03/21 13:24 1 tab STAT ONE Administration Hydrocodone Bitart/Acetaminophen Confirm 11/03/21 13:26 Hydrocodone/Apap 5/325 Mg Tablet Administered 11/03/21 13:27 Dose 1 tab .ROUTE .STK-MED ONE Lab/Rad Data: Laboratory Result Diagrams 11/03/21 12:32 11/03/21 12:32 Laboratory Results 11/03/21 11/03/21 11/03/21 Range/Units 12:42 12:32 12:32 WBC (4.0-10.5) K/mm3 RBC (4.1-5.6) M/mm3 Hgb (12.5-18.0) gm/dl Hct (42-50) % MCV (78-100) fl MCH (26-32) pg MCHC (32-36) g/dl RDW (11.5-14.0) % Plt Count (150-450) K/mm3 MPV (7.5-11.0) fl Gran % (36.0-66.0) % Eos # (Auto) (0-0.5) Absolute Lymphs (auto) (1.0-4.6) Absolute Monos (auto) (0.0-1.3) Lymphocytes % (24.0-44.0) % Monocytes % (0.0-12.0) % Eosinophils % (0.00-5.0) % Basophils % (0.0-0.4) % Absolute Granulocytes (1.4-6.9) Basophils # (0-0.4) PT 13.9 H (9.4-12.5) SECONDS INR 1.18 (0.8-3.0) APTT 38.3 H (25.1-36.5) SECONDS Sodium (137-145) mmol/L Potassium (3.5-5.1) mmol/L Chloride (98-107) mmol/L Carbon Dioxide (22-30) mmol/L Anion Gap (5-15) MEQ/L BUN (9-20) mg/dL Creatinine (0.66-1.25) mg/dL Estimated GFR ML/MIN Glucose (74-106) mg/dL Lactic Acid 1.5 (0.4-2.0) Calcium (8.4-10.2) mg/dL Total Bilirubin (0.2-1.3) mg/dL AST (17-59) U/L ALT (0-50) U/L Alkaline Phosphatase (38-126) U/L Serum Total Protein (6.3-8.2) g/dL Albumin (3.5-5.0) g/dL ABO Group AB Rh Factor POSITIVE Antibody Screen NEGATIVE (NEGATIVE) 11/03/21 11/03/21 Range/Units 12:32 12:32 WBC 7.3 (4.0-10.5) K/mm3 RBC 5.01 (4.1-5.6) M/mm3 Hgb 15.4 (12.5-18.0) gm/dl Hct 46.2 (42-50) % MCV 92.2 (78-100) fl MCH 30.7 (26-32) pg MCHC 33.3 (32-36) g/dl RDW 14.9 H (11.5-14.0) % Plt Count 195 (150-450) K/mm3 MPV 9.4 (7.5-11.0) fl Gran % 74.8 H (36.0-66.0) % Eos # (Auto) 0.15 (0-0.5) Absolute Lymphs (auto) 1.05 (1.0-4.6) Absolute Monos (auto) 0.63 (0.0-1.3) Lymphocytes % 14.3 L (24.0-44.0) % Monocytes % 8.6 (0.0-12.0) % Eosinophils % 2.0 (0.00-5.0) % Basophils % 0.3 (0.0-0.4) % Absolute Granulocytes 5.47 (1.4-6.9) Basophils # 0.02 (0-0.4) PT (9.4-12.5) SECONDS INR (0.8-3.0) APTT (25.1-36.5) SECONDS Sodium 136 L (137-145) mmol/L Potassium 3.8 (3.5-5.1) mmol/L Chloride 100 (98-107) mmol/L Carbon Dioxide 30 (22-30) mmol/L Anion Gap 10.0 (5-15) MEQ/L BUN 14 (9-20) mg/dL Creatinine 1.11 (0.66-1.25) mg/dL Estimated GFR > 60.0 ML/MIN Glucose 207 H (74-106) mg/dL Lactic Acid (0.4-2.0) Calcium 9.3 (8.4-10.2) mg/dL Total Bilirubin 0.60 (0.2-1.3) mg/dL AST 32 (17-59) U/L ALT 23 (0-50) U/L Alkaline Phosphatase 110 (38-126) U/L Serum Total Protein 7.4 (6.3-8.2) g/dL Albumin 3.9 (3.5-5.0) g/dL ABO Group Rh Factor Antibody Screen (NEGATIVE) - Progress Progress: improved Progress Note: 11/03/21 13:49 Case was discussed with Dr. Vallejo who is on-call for Dr. David we will [facility] to the [facility] and if there is any contraindication or not any contraindication the Eliquis will be held to the bleeding in the GI tract stops. Discussed with : Cole - Departure Departure Disposition: Extended Care Facility Clinical Impression: GI bleed Condition: Stable Critical Care Time: No Referrals: KOREY DAVID MD [Primary Care Provider] - Follow up/PCP as directed Instructions: Gastrointestinal Bleeding (DC)
[2021-11-03] MEDS ORDERED: NORCO 5/325 MG PO ONE (13:23)
[2021-11-03] MEDS ORDERED: NORCO 5/325 MG ONE (13:26)
[2021-11-03 13:29] LABS: ABO TYPING AB; Antibody Screen NEGATIVE (NEGATIVE); RH TYPING POSITIVE
--- NOTE | 2021-11-03 13:34 | XRAY ---
Indication: GI bleed. Multiple contiguous images obtained through the abdomen and pelvis using 80 cc Isovue 370 contrast. Comparison: December 17, 2016. Lung bases are clear of infiltrate and effusion. Heart not enlarged. Noncontrasted stomach and bowel loops nonobstructed. Appendix not seen. Again previous cholecystectomy. Urinary bladder demonstrates new Almendarez balloon catheter in situ. No free fluid/air. Stable nonobstructing left renal punctate calculus. Remaining liver, pancreas, spleen, adrenal glands, kidneys, ureters, bladder, and aorta are unremarkable. No pathologic retroperitoneal lymphadenopathy. Osseous structures intact again with osteopenia, moderate/advanced multilevel thoracolumbar degenerative spondylosis, left L5 spondylolysis without spondylolisthesis, and moderate bilateral hip degenerative arthropathy. Impression: 1. Again nonobstructing left renal punctate calculus and chronic bony findings. 2. Remaining CT abdomen/pelvis with contrast exam is again negative.
[2021-11-03 14:09] VITALS: BP 183/96; PULSE 88; O2SAT 97
[2021-11-03 14:20] LABS: Appearance CLEAR (CLEAR); Bilirubin NEGATIVE (NEGATIVE); Blood NEGATIVE Ery/ul (0-5); Glucose >=500 mg/dL (NEGATIVE); Ketones NEGATIVE (NEGATIVE); Leukocyte Esterase NEGATIVE (NEGATIVE); Nitrite NEGATIVE (NEGATIVE); Protein,Urine Dip >=500 (Negative); RBC 0-2 /HPF (0-2); Specific Gravity 1.014 (1.005-1.025); Urobilinogen NEGATIVE mg/dL (0-1)
== END 2021-11-03 14:35 ==
LOC: ED 11:30
DX: K92.2 Gastrointestinal hemorrhage, unspecified (principal); Z86.718 Personal history of other venous thrombosis and embolism; Z79.01 Long term (current) use of anticoagulants; I25.2 Old myocardial infarction; E78.5 Hyperlipidemia, unspecified; I10 Essential (primary) hypertension; E11.9 Type 2 diabetes mellitus without complications; Z79.4 Long term (current) use of insulin; Z79.84 Long term (current) use of oral hypoglycemic drugs; Z79.899 Other long term (current) drug therapy; Z79.891 Long term (current) use of opiate analgesic
CPT/HCPCS: 36000; 36415; 51702; 74177; 80053; 81001; 83605; 85025; 85610; 85730; 86850; 86900; 86901; 99284; A9270-GY

== ENCOUNTER 2023-02-02 10:07 | Emergency (ER) | payer MEDICARE ==
[2023-02-02] MEDS ORDERED: solu-MEDROL 125 MG, Sterile H2O 10 ml 2 ML IV ONE ×2 (10:20)
--- NOTE | 2023-02-02 10:22 | ERPHSYRPT ---
- History of Present Illness Time Seen by Provider: 02/02/23 10:22 Source: patient Exam Limitations: no limitations Physician History: Patient is a 67-year-old male presents to our ED via EMS for evaluation of shortness of breath. Patient is a resident at [facility]. Upon arrival patient was observed to be febrile. Patient alert and oriented x3. Patient has history of diabetes and pulmonary fibrosis. Patient also has history of cellulitis. Both lower extremities are currently bandaged. Patient received local wound care for cellulitis/leg wounds. However the wound does not appear to be actively infected at this time. Temperature sensing Almendarez placed. Tem perature observed to be 1031. Urine appears to be purulent. Patient symptoms observed today. Symptoms are constant. Symptoms are moderate in intensity. No specific worsening improving factors. Patient voices no other complaints or concerns at this time. Portions of this note were created with voice recognition technology. There may be grammatical, spelling, punctuation or sound alike errors Timing/Duration: today Severity: moderate Modifying Factors: Improves With: nothing Associated Symptoms: denies symptoms Allergies/Adverse Reactions: No Known Drug Allergies Allergy (Verified 02/02/23 11:42) Home Medications: Cyanocobalamin (Vitamin B-12) [Vitamin B12] 2,500 mcg PO DAILY 12/17/16 [History] Ergocalciferol (Vitamin D2) [Vitamin D2] 50,000 unit PO Q7D 12/17/16 [History] Furosemide 20 mg PO BID 12/17/16 [History] Insulin Aspart [NovoLOG Insulin] 20 - 30 units SQ UD PRN 12/17/16 [History] Methyl-B12/l-Mefolate/B6 Phos [Metanx Tablet] 1 each PO BID 12/17/16 [History] Potassium Chloride 10 meq PO DAILY 12/17/16 [History] glipiZIDE [Glipizide Xl] 10 mg PO BID 12/17/16 [History] Calcium Carb, Citrate/Vit D3 [Calcium + D3 ER Tablet] 1 each PO DAILY 08/10/17 [History] Carvedilol 3.125 mg [Coreg 3.125 MG] 3.125 mg PO BID 08/10/17 [History] Dextrose [Glucose] 4 gm PO BID PRN PRN 08/10/17 [History] Duloxetine HCl 30 mg [Cymbalta 30 MG Capsule] 30 mg PO DAILY 08/10/17 [History] Hydrocodone/Acetaminophen [[place] 5-325 Tablet] 1 each PO Q6H PRN 08/10/17 [History] Multivit-Min/Ferrous Sulfate [Multilex] 1 each PO DAILY 08/10/17 [History] Rosuvastatin Calcium [Crestor] 10 mg PO DAILY 08/10/17 [History] Apixaban [Eliquis 5 mg Tablet] 1 ea DAILY 11/03/21 [History] Dorzolamide HCl/Timolol Maleat [Dorzolamide-Timolol Eye Drops] 1 drop BID 11/03/21 [History] Dulaglutide [Trulicity] 1.5 mg SQ UD 11/03/21 [History] Empagliflozin [Jardiance] 25 mg DAILY 11/03/21 [History] Insulin Detemir [Levemir] 80 unit SQ BID 11/03/21 [History] Lisinopril 10 mg [Zestril 10 MG] 1 ea DAILY 11/03/21 [History] Mecobal/Levomefolat Ca/B6 Phos [t-Vbnhyf-A2-B12 Tablet] 1 ea DAILY 11/03/21 [History] Hx Tetanus, Diphtheria Vaccination/Date Given: No Hx Influenza Vaccination/Date Given: No Hx Pneumococcal Vaccination/Date Given: No Travel Risk - Vaccine Status Have you recieved a Covid-19 vaccination: Yes Mine Analyst: Unknown - Vaccination Dates Date of 2cond Vaccination (if applicable): ? Dates if Unknown: ? - Review of Systems Constitutional: No Symptoms, No Fever, No Chills Eyes: No Symptoms Ears, Nose, & Throat: No Symptoms Respiratory: No Symptoms, No Cough, No Dyspnea Cardiac: No Symptoms, No Chest Pain, No Edema, No Syncope Abdominal/Gastrointestinal: No Symptoms, No Abdominal Pain, No Nausea, No Vomit ing, No Diarrhea Genitourinary Symptoms: No Symptoms, No Dysuria Musculoskeletal: No Symptoms, No Back Pain, No Neck Pain Skin: No Symptoms, No Rash Neurological: No Symptoms, No Dizziness, No Focal Weakness, No Sensory Changes Psychological: No Symptoms Endocrine: No Symptoms Hematologic/Lymphatic: No Symptoms Immunological/Allergic: No Symptoms All Other Systems: Reviewed and Negative - Past Medical History Pertinent Past Medical History: Yes Neurological History: No Pertinent History ENT History: No Pertinent History Cardiac History: Deep Vein Thrombosis, High Cholesterol, Hypertension, Myocardial Infarction ([place]) Respiratory History: Sleep Apnea Endocrine Medical History: Diabetes Type II Musculoskeletal History: No Pertinent History GI Medical History: No Pertinent History History: No Pertinent History Psycho-Social History: No Pertinent History Male Reproductive Disorders: No Pertinent History Other Medical History: psoriasis - Past Surgical History Past Surgical History: Yes Neuro Surgical History: No Pertinent History Cardiac: No Pertinent History, Cardiac Catheterization Respiratory: No Pertinent History Gastrointestinal: Cholecystectomy, Hemorrhoidectomy Genitourinary: No Pertinent History Musculoskeletal: No Pertinent History, Orthopedic Surgery Male Surgical History: No Pertinent History Other Surgical History: BACK SURGERY. EYE SURGERIES - Social History Smoking Status: Never smoker Exposure to second hand smoke: Yes Drug Use: none Patient Lives Alone: No Significant Family History: heart disease, diabetes - Nursing Vital Signs Nursing Vital Signs: Initial Vital Signs Temperature 103.6 F 02/02/23 10:07 Pulse Rate 155 H 02/02/23 10:07 Respiratory Rate 34 H 02/02/23 10:07 Blood Pressure 125/71 02/02/23 10:07 O2 Sat by Pulse Oximetry 95 02/02/23 10:07 Pain Scale Pain Intensity 0 - Physical Exam General Appearance: no apparent distress, alert Eye Exam: PERRL/EOMI, eyes nml inspection Ears, Nose, Throat Exam: normal ENT inspection, TMs normal, pharynx normal, moist mucous membranes, other Neck Exam: normal inspection, non-tender, supple, full range of motion Respiratory Exam: normal breath sounds, lungs clear, airway intact, No respiratory distress Cardiovascular Exam: regular rate/rhythm, normal heart sounds, normal peripheral pulses Gastrointestinal/Abdomen Exam: soft, normal bowel sounds, No tenderness, No mass Back Exam: normal inspection, normal range of motion, No CVA tenderness, No vertebral tenderness Extremity Exam: normal inspection, normal range of motion, pelvis stable Neurologic Exam: alert, oriented x 3, cooperative, normal mood/affect, nml cerebellar function, nml station & gait, sensation nml, No motor deficits Skin Exam: normal color, warm, dry, No rash Lymphatic Exam: No adenopathy SpO2 Interpretation: normal SpO2: 98 O2 Delivery: Room Air - Course Nursing assessment & vital signs reviewed: Yes EKG Interpreted by Me: RATE (162. Demand ischemia likely due to elevated heart rate.) - Radiology Exams Chest X-ray Interpretation: Teleradiologist Report (New left base infiltrate/atelectasis) Ordered Tests: Active Orders 24 hr Category Date Time Status Distresser STAT Care 02/02/23 10:19 Active Cath [Catheter-[place] Almendarez] STAT Care 02/02/23 10:38 Active EKG-ER Only STAT Care 02/02/23 10:17 Active IV Insertion STAT Care 02/02/23 10:17 Active IV Insertion-2nd Peripheral STAT Care 02/02/23 10:38 Active Pulse Oximetry (ED) STAT Care 02/02/23 10:17 Active CHEST 1 VIEW (PORTABLE) Stat Exams 02/02/23 10:19 Completed BLOOD CULTURE Stat Lab 02/02/23 10:10 Received CBC W DIFF Stat Lab 02/02/23 10:10 Completed CMP Stat Lab 02/02/23 10:10 Completed CULTURE,URINE Stat Lab 02/02/23 10:10 Received Lactic Acid Stat Lab 02/02/23 10:26 Completed MAG [MAGNESIUM] Stat Lab 02/02/23 10:32 Completed Manual Differential NC Stat Lab 02/02/23 10:10 Completed NT PRO BNPII Stat Lab 02/02/23 10:10 Completed TROPONIN Q4H Lab 02/02/23 10:10 Completed TROPONIN Q4H Lab 02/02/23 14:30 Ordered TROPONIN Q4H Lab 02/02/23 18:30 Ordered UA W/RFX UR CULTURE Stat Lab 02/02/23 10:10 Completed Respiratory Therapy Assessment DAILY RT 02/02/23 12:14 Active Medication Summary Generic Name Dose Route Start Last Admin Trade Name Freq PRN Reason Stop Dose Admin Sodium Bicarbonate 75 meq/ 1,075 mls @ 100 mls/hr 02/02/23 12:00 02/02/23 12:27 Dextrose/Sodium Chloride IV 03/04/23 11:59 100 ml/hr .[id number] NOEL 100 mls/hr Administration Sodium Chloride 1,000 mls @ 999 mls/hr 02/02/23 12:17 02/02/23 12:20 Sodium Chloride 0.9% 1000 Ml IV 02/02/23 13:17 999 mls/hr .Q1H1M STA Administration Discontinued Medications Generic Name Dose Route Start Last Admin Trade Name Freq PRN Reason Stop Dose Admin Albuterol Sulfate 2.5 mg 02/02/23 12:01 02/02/23 12:10 Albuterol Sulfate 2.5 Mg/3 Ml Neb IH 02/02/23 12:02 2.5 mg STAT ONE Administration Albuterol Sulfate Confirm 02/02/23 12:07 Albuterol Sulfate 2.5 Mg/3 Ml Neb Administered 02/02/23 12:08 Dose 2.5 mg IH .STK-MED ONE Calcium Gluconate 1,000 mg 02/02/23 11:49 02/02/23 11:52 Calcium Gluconate 1000 Mg/10 Ml Vial IV 02/02/23 11:50 1,000 mg STAT ONE Administration Calcium Gluconate Confirm 02/02/23 11:48 Calcium Gluconate 1000 Mg/10 Ml Vial Administered 02/02/23 11:49 Dose 1,000 mg IV .STK-MED ONE Methylprednisolone Sodium 0 mg 02/02/23 10:20 02/02/23 10:45 Succinate 125 mg/ Sterile IV 02/02/23 10:21 125 mg Water 2 ml STAT ONE Administration Dextrose 50 ml 02/02/23 12:00 02/02/23 12:26 Dextrose 50%-Water 50 Ml Abboject IV 02/02/23 12:01 50 ml STAT ONE Administration Vancomycin HCl 1 gm in 200 mls @ 125 mls/hr 02/02/23 10:36 02/02/23 12:38 Vancomycin 1 Gram/200 Ml Bag IV 02/02/23 12:11 Infused STAT ONE Infusion Piperacillin Sod/Tazobactam 100 mls @ 200 mls/hr 02/02/23 10:36 02/02/23 10:45 Sod 3.375 gm/ Sodium Chloride IV 02/02/23 11:05 200 mls/hr STAT ONE Administration Acetaminophen 1,000 mg in 100 mls @ 400 mls/hr 02/02/23 10:37 02/02/23 10:45 Ofirmev IV 02/02/23 10:51 400 mls/hr 1HRPRIOR ONE Administration Sodium Chloride Confirm 02/02/23 10:41 Sodium Chloride 100ml Mini-Bag Plus Administered 02/02/23 10:42 Dose 100 mls @ ud IV .STK-MED ONE Sodium Chloride 1,000 mls @ 999 mls/hr 02/02/23 10:45 02/02/23 11:56 Sodium Chloride 0.9% 1000 Ml IV 02/02/23 11:45 Infused .Q1H1M STA Infusion Sodium Chloride Confirm 02/02/23 10:47 Sodium Chloride 0.9% 1000 Ml Administered 02/02/23 10:48 Dose 1,000 mls @ ud .ROUTE .STK-MED ONE Vancomycin HCl Confirm 02/02/23 10:57 Vancomycin 1 Gram/200 Ml Bag Administered 02/02/23 10:58 Dose 1 gm in 200 mls @ ud IV .STK-MED ONE Calcium Gluconate 1,000 mg/ 110 mls @ 220 mls/hr 02/02/23 11:44 02/02/23 11:49 Sodium Chloride IV 02/02/23 12:13 Not Given ONCE ONE Dextrose/Sodium Chloride Confirm 02/02/23 12:18 Dextrose 5% -0.45 Nacl 1000 Ml Administered 02/02/23 12:19 Dose 1,000 mls @ ud IV .STK-MED ONE Sodium Chloride Confirm 02/02/23 12:19 Sodium Chloride 0.9% 1000 Ml Administered 02/02/23 12:20 Dose 1,000 mls @ ud .ROUTE .STK-MED ONE Insulin Human Regular 5 unit 02/02/23 12:00 02/02/23 12:26 Insulin Regular, Human 1 Unit SQ 02/02/23 12:01 5 unit STAT ONE Administration Insulin Human Regular Confirm 02/02/23 12:18 Insulin Regular, Human 1 Unit Administered 02/02/23 12:19 Dose 5 unit .ROUTE .STK-MED ONE Methylprednisolone Sodium Succinate Confirm 02/02/23 10:40 Methylprednis Sod Succ 125 Mg/2 Ml Vial Administered 02/02/23 10:41 Dose 125 mg .ROUTE .STK-MED ONE Patiromer 8.4 gm 02/02/23 12:01 02/02/23 12:27 Patiromer Calcium Sorbitex 8.4 Gm Powd.Pack PO 02/02/23 12:02 8.4 gm STAT STA Administration Patiromer Confirm 02/02/23 12:18 Patiromer Calcium Sorbitex 8.4 Gm Powd.Pack Administered 02/02/23 12:19 Dose 8.4 gm PO .STK-MED ONE Piperacillin Sod/Tazobactam Sod Confirm 02/02/23 10:41 Piperacillin/Tazobactam Sodium 3.375 Gm Vial Administered 02/02/23 10:42 Dose 3.375 gm IV .STK-MED ONE Sodium Bicarbonate Confirm 02/02/23 12:18 Sodium Bicarbonate 1 Meq/Ml 50ml Vial Administered 02/02/23 12:19 Dose 100 meq .ROUTE .STK-MED ONE Sterile Water Confirm 02/02/23 10:40 Water For Injection,Sterile 10 Ml Vial Administered 02/02/23 10:41 Dose 10 ml IJ .STK-MED ONE Lab/Rad Data: Laboratory Result Diagrams 02/02/23 10:10 02/02/23 10:10 Laboratory Results 02/02/23 02/02/23 02/02/23 Range/Units 10:47 10:32 10:26 WBC (4.0-10.5) x10^3/uL RBC (4.1-5.6) x10^6/uL Hgb (12.5-18.0) g/dL Hct (42-50) % MCV (78-100) fL MCH (26-32) pg MCHC (32-36) g/dL RDW (11.5-14.0) % Plt Count (150-450) x10^3/uL MPV (7.5-11.0) fL Segmented Neutrophils (36.-66.) % Lymphocytes (Manual) (24-44) % Toxic Granulation Platelet Estimate (NORMAL) RBC Morphology Anisocytosis Sodium (137-145) mmol/L Potassium (3.5-5.1) mmol/L Chloride (98-107) mmol/L Carbon Dioxide (22-30) mmol/L Anion Gap (5-15) MEQ/L BUN (9-20) mg/dL Creatinine (0.66-1.25) mg/dL Estimated GFR ML/MIN Glucose (74-106) mg/dL Lactic Acid 2.2 H (0.4-2.0) Calcium (8.4-10.2) mg/dL Magnesium 2.3 (1.6-2.3) mg/dL Total Bilirubin (0.2-1.3) mg/dL AST (17-59) U/L ALT (0-50) U/L Alkaline Phosphatase (38-126) U/L Troponin I (0.000-0.034) ng/mL NT-Pro-B Natriuret Pep (<300) pg/mL Serum Total Protein (6.3-8.2) g/dL Albumin (3.5-5.0) g/dL Urine Color (Yellow) Urine Appearance (Clear) Urine pH (4.6-8.0) Ur Specific [place] (1.005-1.030) Urine Protein (Negative) Urine Glucose (UA) (Negative) mg/dL Urine Ketones (Negative) Urine Blood (Negative) Urine Nitrite (Negative) Urine Bilirubin (Negative) Urine Urobilinogen (0.2) mg/dL Ur Leukocyte Esterase (Negative) U Hyaline Cast (Auto) (0-2) /LPF Urine Microscopic RBC (0-5) /HPF Urine Microscopic WBC (0-5) /HPF Ur Epithelial Cells (None Seen) /HPF Urine Bacteria (None Seen) /HPF Urine Culture Reflexed (NO) Influenza Type A Ag NEGATIVE (NEGATIVE) Influenza Type B Ag NEGATIVE (NEGATIVE) RSV (PCR) NEGATIVE (NEGATIVE) SARS-CoV-2 (PCR) NEGATIVE (NEGATIVE) 02/02/23 02/02/23 02/02/23 Range/Units 10:10 10:10 10:10 WBC (4.0-10.5) x10^3/uL RBC (4.1-5.6) x10^6/uL Hgb (12.5-18.0) g/dL Hct (42-50) % MCV (78-100) fL MCH (26-32) pg MCHC (32-36) g/dL RDW (11.5-14.0) % Plt Count (150-450) x10^3/uL MPV (7.5-11.0) fL Segmented Neutrophils (36.-66.) % Lymphocytes (Manual) (24-44) % Toxic Granulation Platelet Estimate (NORMAL) RBC Morphology Anisocytosis Sodium 137 (137-145) mmol/L Potassium 6.4 H* (3.5-5.1) mmol/L Chloride 100 (98-107) mmol/L Carbon Dioxide 21 L (22-30) mmol/L Anion Gap 22.8 H (5-15) MEQ/L BUN 89 H (9-20) mg/dL Creatinine 3.09 H (0.66-1.25) mg/dL Estimated GFR 21.6 ML/MIN Glucose 130 H (74-106) mg/dL Lactic Acid (0.4-2.0) Calcium 9.1 (8.4-10.2) mg/dL Magnesium (1.6-2.3) mg/dL Total Bilirubin 0.70 (0.2-1.3) mg/dL AST 43 (17-59) U/L ALT 31 (0-50) U/L Alkaline Phosphatase 144 H (38-126) U/L Troponin I 0.016 (0.000-0.034) ng/mL NT-Pro-B Natriuret Pep 2860 (<300) pg/mL Serum Total Protein 8.7 H (6.3-8.2) g/dL Albumin 4.1 (3.5-5.0) g/dL Urine Color Yellow (Yellow) Urine Appearance Turbid A (Clear) Urine pH 5.5 (4.6-8.0) Ur Specific [place] 1.015 (1.005-1.030) Urine Protein 100 A (Negative) Urine Glucose (UA) >=1000 A (Negative) mg/dL Urine Ketones Negative (Negative) Urine Blood Moderate A (Negative) Urine Nitrite Negative (Negative) Urine Bilirubin Negative (Negative) Urine Urobilinogen 0.2 (0.2) mg/dL Ur Leukocyte Esterase Large A (Negative) U Hyaline Cast (Auto) NONE SEEN (0-2) /LPF Urine Microscopic RBC 6-10 A (0-5) /HPF Urine Microscopic WBC >100 A (0-5) /HPF Ur Epithelial Cells None Seen (None Seen) /HPF Urine Bacteria None Seen (None Seen) /HPF Urine Culture Reflexed YES (NO) Influenza Type A Ag (NEGATIVE) Influenza Type B Ag (NEGATIVE) RSV (PCR) (NEGATIVE) SARS-CoV-2 (PCR) (NEGATIVE) 02/02/23 Range/Units 10:10 WBC 24.3 H (4.0-10.5) x10^3/uL RBC 4.00 L (4.1-5.6) x10^6/uL Hgb 11.4 L (12.5-18.0) g/dL Hct 36.5 L (42-50) % MCV 91.3 (78-100) fL MCH 28.5 (26-32) pg MCHC 31.2 L (32-36) g/dL RDW 15.6 H (11.5-14.0) % Plt Count 471 H (150-450) x10^3/uL MPV 8.8 (7.5-11.0) fL Segmented Neutrophils 95 H (36.-66.) % Lymphocytes (Manual) 5 L (24-44) % Toxic Granulation 1+ Platelet Estimate INCREASED (NORMAL) RBC Morphology ABNORMAL Anisocytosis 1+ Sodium (137-145) mmol/L Potassium (3.5-5.1) mmol/L Chloride (98-107) mmol/L Carbon Dioxide (22-30) mmol/L Anion Gap (5-15) MEQ/L BUN (9-20) mg/dL Creatinine (0.66-1.25) mg/dL Estimated GFR ML/MIN Glucose (74-106) mg/dL Lactic Acid (0.4-2.0) Calcium (8.4-10.2) mg/dL Magnesium (1.6-2.3) mg/dL Total Bilirubin (0.2-1.3) mg/dL AST (17-59) U/L ALT (0-50) U/L Alkaline Phosphatase (38-126) U/L Troponin I (0.000-0.034) ng/mL NT-Pro-B Natriuret Pep (<300) pg/mL Serum Total Protein (6.3-8.2) g/dL Albumin (3.5-5.0) g/dL Urine Color (Yellow) Urine Appearance (Clear) Urine pH (4.6-8.0) Ur Specific [place] (1.005-1.030) Urine Protein (Negative) Urine Glucose (UA) (Negative) mg/dL Urine Ketones (Negative) Urine Blood (Negative) Urine Nitrite (Negative) Urine Bilirubin (Negative) Urine Urobilinogen (0.2) mg/dL Ur Leukocyte Esterase (Negative) U Hyaline Cast (Auto) (0-2) /LPF Urine Microscopic RBC (0-5) /HPF Urine Microscopic WBC (0-5) /HPF Ur Epithelial Cells (None Seen) /HPF Urine Bacteria (None Seen) /HPF Urine Culture Reflexed (NO) Influenza Type A Ag (NEGATIVE) Influenza Type B Ag (NEGATIVE) RSV (PCR) (NEGATIVE) SARS-CoV-2 (PCR) (NEGATIVE) - Progress Progress: improved Progress Note: 67-year-old male presents emergency department for evaluation of cough and shortness of breath. Upon arrival patient had a fever of 103. CBC CMP UA troponin ordered. Patient has a leukocytosis of 24. Urinalysis reveals a pyuria. UA reveals a significant urinary tract infection. Chest x-ray reveals a left lower lobe infiltrate. Patient was tachycardic upon arrival. IV fluids administered. Antibiotics administered. Patient received a gram of vancomycin and 3.375 mg Zosyn. Fever was managed via IV Tylenol/Ofirmev fever defervesced down from 10 3-1 01 currently. Heart rate improved from 160s to 109. Patient states he feels much better. He appears to be mentating well. Patient has chronic renal insufficiency. Potassium here was 6.4. Patient had laboratory work-up done at [address] just prior to arrival. Potassium there was 6. We initiated our hyperkalemia protocol. Patient received calcium gluconate, albuterol nebulizer, [place] insulin glucose and sodium bicarb. Lactic acid was 2.3. Lactic acid will be repeated as per protocol. Repeat potassium is scheduled to be rechecked within the hour. However patient will be transferred to [facility] likely before the recheck of the potassium. Clinically patient appears well. Due to the severity of patient's problem as well as the need for a cigarette tester we will transfer patient to an outside facility. Case discussed with Dr. Mckeon ER physician at [facility] who accepts transfer. Plan of care discussed with patient. Patient agrees to transfer to [facility] for further evaluation and treatment. Portions of this note were created with voice recognition technology. There may be grammatical, spelling, punctuation or sound alike errors 67-year-old male with a history of diabetes pulmonary fibrosis currently a resident at [address] presents to our ED for evaluation of shortness of breath. Patient arrived via EMS. Patient's complaint was acute in nature. Complexity of problem addressed is high. Sepsis source being urine and lung. Critical care time is 3 hours. Intervention was required to stabilize patient. Patient's heart rate upon arrival was 166. Temperature of 103. Acute renal failure with hyperkalemia EKG revealed a tachycardia with a demand ischemia. Needed action involving critical care intervention was required to prevent further deterioration Complexity of data reviewed and analyzed is extensive test ordered. Test reviewed and analyzed. EMS provided significant information and served as independent historian. Due to the critical nature of patient's presentation he was unable to provide a detailed HPI. Case discussed with Dr. Mckeon ER physician at [facility] who accepts transfer. As tachycardia improved blood pressure decreased. Systolic was relatively low in the 90s however map was maintained between 65 and 67. Patient responded well to IV fluids. No indication for pressors at this time. Risk of complication and/or risk of morbidity/mortality of patient management is high. Vitals are now stable. Portions of this note were created with voice recognition technology. There may be grammatical, spelling, punctuation or sound alike errors 02/02/23 12:47 Will see patient in: hospital (observation) Counseled pt/family regarding: lab results, diagnosis, rad results - Departure Departure Disposition: Transfer Clinical Impression: Fever, Tachycardia, SOB (shortness of breath), Leukocytosis, Hyperkalemia, UTI (urinary tract infection), Chronic renal insufficiency, Pneumonia, Elevated brain natriuretic peptide (BNP) level Condition: Stable Critical Care Time: No Referrals: ENVIVE,ENVIVE [Primary Care Provider] - Follow up/PCP as directed
[2023-02-02] MEDS ORDERED: VANCOMYCIN 1 GRAM/200 ML BAG 1 GM/200 ML PIGGYBACK IV ONE ×2 (10:36→10:57)
[2023-02-02] MEDS ORDERED: PIPERACILLIN/TAZOBACTAM 3.375 GM in Sodium Chloride 100ML MINI-BAG PLUS 100 ML IV ONE (10:36)
[2023-02-02 10:37] LABS: Hematocrit 36.5 % (42-50); Hemoglobin 11.4 g/dL (12.5-18.0); Mean Cell Volume 91.3 fL (78-100); Mean Corpuscular Hemoglobin 28.5 pg (26-32); Mean Corpuscular Hgb Concent. 31.2 g/dL (32-36); Mean Platelet Volume 8.8 fL (7.5-11.0); Platelet Count 471 x10^3/uL (150-450); Red Cell Distribution Width 15.6 % (11.5-14.0); White Blood Count 24.3 x10^3/uL (4.0-10.5)
[2023-02-02] MEDS ORDERED: OFIRMEV 1,000 MG/100 ML ML IV ONE (10:37)
[2023-02-02] MEDS ORDERED: Sterile H2O 10 ml IJ ONE (10:40)
[2023-02-02] MEDS ORDERED: solu-MEDROL ONE (10:40)
[2023-02-02] MEDS ORDERED: Sodium Chloride 100ML MINI-BAG PLUS 100 ML IV ONE (10:41)
[2023-02-02] MEDS ORDERED: PIPERACILLIN/TAZOBACTAM IV ONE (10:41)
[2023-02-02] MEDS ORDERED: Sodium Chloride 0.9% 1000 ML 1,000 ML IV STA ×2 (10:45→12:17)
[2023-02-02] MEDS ORDERED: Sodium Chloride 0.9% 1000 ML 1,000 ML ONE ×2 (10:47→12:19)
[2023-02-02 10:51] LABS: ALBUMIN 4.1 g/dL (3.5-5.0); ANION GAP 22.8 MEQ/L (5-15); BILIRUBIN,TOTAL 0.7 mg/dL (0.2-1.3); Calcium 9.1 mg/dL (8.4-10.2); Creatinine 1 3.09 mg/dL (0.66-1.25); EST GLOMERULAR FILTRATION RATE 21.6 ML/MIN; Total Protein 8.7 g/dL (6.3-8.2)
--- NOTE | 2023-02-02 11:01 | XRAY ---
Indication: Short of breath. Infection. Comparison: 2016 Portable chest demonstrates new left base infiltrate/atelectasis with small effusion. Remaining heart and right lung unremarkable. Bony thorax intact again with mild degenerative changes.
[2023-02-02 11:03] LABS: TROPONIN 0.016 ng/mL (0.000-0.034)
[2023-02-02 11:05] LABS: Potassium 6.4 mmol/L (3.5-5.1)
[2023-02-02 11:15] LABS: Appearance Turbid (Clear); Bacteria None Seen /HPF (None Seen); Bilirubin Negative (Negative); Blood Moderate (Negative); Epithelial Cells None Seen /HPF (None Seen); Glucose, Urine >=1000 mg/dL (Negative); Hyaline Casts NONE SEEN /LPF (0-2); Ketones Negative (Negative); Leukocyte Esterase Large (Negative); Nitrite Negative (Negative); Ph 5.5 (4.6-8.0); Protein,Urine Dip 100 (Negative); Specific Gravity 1.015 (1.005-1.030); Urobilinogen 0.2 mg/dL (0.2); WBC >100 /HPF (0-5)
[2023-02-02 11:19] LABS: ADD URINE CULTURE? YES (NO)
[2023-02-02 11:23] LABS: INFLUENZA A NEGATIVE (NEGATIVE); INFLUENZA B NEGATIVE (NEGATIVE); RESPIRATORY SYNCTIAL VIRUS NEGATIVE (NEGATIVE); SARS-CoV-2 Xpert Express NEGATIVE (NEGATIVE)
[2023-02-02] MEDS ORDERED: Calcium Gluconate 10% 1000 MG 1,000 MG in Sodium Chloride 0.9% 100 ML IV ONE (11:44)
[2023-02-02] MEDS ORDERED: Calcium Gluconate 10% 1000 MG IV ONE ×2 (11:48→11:49)
[2023-02-02 11:56] LABS: Lymphocytes 5 % (24-44); Neutrophils 95 % (36.-66.); Total Cells Counted 100
[2023-02-02 11:57] LABS: ANISOCYTOSIS 1+; Platelet Estimate INCREASED (NORMAL); Toxic Granulation 1+
[2023-02-02] MEDS ORDERED: D50W 50 ml Abboject IV ONE (12:00)
[2023-02-02] MEDS ORDERED: HUMULIN R SQ ONE (12:00)
[2023-02-02] MEDS ORDERED: Sodium Bicarbonate 50 MEQ/50 ML VIAL*** 75 MEQ in Dextrose 5% -0.45 NaCl 1000 ML 1,000 ML IV SCH (12:00)
[2023-02-02] MEDS ORDERED: VELTASSA PO STA (12:01)
[2023-02-02] MEDS ORDERED: PROVENTIL 2.5 MG/3 ML NEB IH ONE ×2 (12:01→12:07)
[2023-02-02 12:18] VITALS: O2SAT 98
[2023-02-02] MEDS ORDERED: Sodium Bicarbonate 50 MEQ/50 ML VIAL ONE (12:18)
[2023-02-02] MEDS ORDERED: Dextrose 5% -0.45 NaCl 1000 ML 1,000 ML IV ONE (12:18)
[2023-02-02] MEDS ORDERED: VELTASSA PO ONE (12:18)
[2023-02-02] MEDS ORDERED: HUMULIN R ONE (12:18)
[2023-02-02 13:02] VITALS: BP 109/54; PULSE 108
== END 2023-02-02 13:10 | disposition short-term general hospital (02) ==
LOC: ED 10:07
DX: J18.9 Pneumonia, unspecified organism (principal); N39.0 Urinary tract infection, site not specified; R50.9 Fever, unspecified; R00.0 Tachycardia, unspecified; R06.02 Shortness of breath; D72.829 Elevated white blood cell count, unspecified; E87.5 Hyperkalemia; I12.9 Hypertensive chronic kidney disease with stage 1 through stage 4 chronic kidney disease, or unspecified chronic kidney disease; N18.9 Chronic kidney disease, unspecified; R79.89 Other specified abnormal findings of blood chemistry; E11.22 Type 2 diabetes mellitus with diabetic chronic kidney disease; E78.5 Hyperlipidemia, unspecified; Z79.4 Long term (current) use of insulin; Z79.84 Long term (current) use of oral hypoglycemic drugs; Z79.01 Long term (current) use of anticoagulants; Z79.899 Other long term (current) drug therapy
CPT/HCPCS: 0241U; 36000; 36415; 51702; 71045; 80053; 81001; 83605; 83735; 83880; 84484; 85025; 87040; 87086; 93005; 93041; 94640; 94760; 96360; 96365; 96367; 96372; 96374; 96375; 99285; J0610; J1815; J2930; J7609; A9270-GY; J3370